=== PATIENT | male | born 1945 | race Caucasian/White ===

== ENCOUNTER 2016-09-27 20:52 | Emergency (ER) | payer MEDICARE, OTHER ==
[2016-09-27] MEDS ORDERED: LISINOPRIL 5 MG TABLET PO STA (21:48)
[2016-09-27] MEDS ORDERED: METOPROLOL SUCCINATE 50 MG TABLET PO STA (21:48)
[2016-09-27] MEDS ORDERED: LISINOPRIL 5 MG TABLET ONE (21:53)
[2016-09-27] MEDS ORDERED: IOPAMIDOL-300 100 ML VIAL IVP ONE (22:31)
[2016-09-27] MEDS ORDERED: amLODIPine 5 MG TABLET PO STA (22:34)
[2016-09-27] MEDS ORDERED: SODIUM CHLORIDE 0.9% 1,000 ML IV ONE (22:34)
[2016-09-27] MEDS ORDERED: KETOROLAC 60 MG/2 ML VIAL IVP STA (22:41)
[2016-09-27] MEDS ORDERED: amLODIPine 5 MG TABLET ONE (22:44)
[2016-09-27] MEDS ORDERED: KETOROLAC 30 MG/ML VIAL ONE (22:44)
== END 2016-09-28 02:35 | disposition home or self-care (01) ==
DX: R07.89 Other chest pain (principal); I10 Essential (primary) hypertension; E78.00 Pure hypercholesterolemia, unspecified; Z95.5 Presence of coronary angioplasty implant and graft
CPT/HCPCS: 36415; 71275; 76705; 80053; 83690; 84484; 85025; 93005; 93010; 96361; 96374; 99284; A9270; G0480; Q9967

== ENCOUNTER 2016-10-11 08:40 | Outpatient (CLI) | payer MEDICARE, OTHER ==
[2016-10-11 11:51] LABS: BASOPHILS # (AUTO) 0.1 10^3/uL (0.0-0.1); EOSINOPHILS # (AUTO) 0.2 10^3/uL (0.0-0.7); EOSINOPHILS % (AUTO) 2.8 %; HCT - HEMATOCRIT 45.9 % (42.0-52.0); HGB - HEMOGLOBIN 15.7 g/dL (14.0-18.0); LYMPHOCYTES # (AUTO) 1.8 10^3/uL (1.5-3.5); LYMPHOCYTES % (AUTO) 31.7 %; MEAN CORPUSCULAR HEMOGLOBIN 32.3 pg (27.0-31.0); MEAN CORPUSCULAR HGB CONC 34.3 g/dL (32.0-36.0); MEAN CORPUSCULAR VOLUME 94.3 fL (80.0-94.0); MEAN PLATELET VOLUME 8.5 fL (7.4-11.4); MONOCYTES # (AUTO) 0.8 10^3/uL (0.0-1.0); MONOCYTES % (AUTO) 13.8 %; NEUTROPHILS # (AUTO) 2.8 10^3/uL (1.5-6.6); NEUTROPHILS % (AUTO) 50.7 %; NUCLEATED RED BLOOD CELLS AUTO 0.1 /100WBC; RED BLOOD COUNT 4.87 10^6/uL (4.70-6.10); RED CELL DISTRIBUTION WIDTH 13.1 % (12.0-15.0); UNCORRECTED WHITE BLOOD COUNT 5.5 x10^3/uL; WHITE BLOOD COUNT 5.5 x10^3/uL (4.8-10.8)
[2016-10-11 12:07] LABS: ALBUMIN/GLOBULIN RATIO 1.4 (1.0-2.2); BILIRUBIN,TOTAL 0.8 mg/dL (0.2-1.0); BUN - BLOOD UREA NITROGEN 15 mg/dL (6-20); CALCIUM 8.9 mg/dL (8.5-10.3); CARBON DIOXIDE - CO2 28 mmol/L (21-32); CHLORIDE 104 mmol/L (101-111); CHOL/HDL RATIO 2.7 (<5.0); CHOLESTEROL 174 mg/dL; CREATININE 1.1 mg/dL (0.6-1.2); GFR - MDRD 66 (>89); GLUCOSE 90 mg/dL (70-100); HDL CHOLESTEROL 65 mg/dL; LDL/HDL RATIO 1.2 (<3.6); SODIUM 141 mmol/L (135-145); TOTAL PROTEIN 7.6 g/dL (6.7-8.2); TRIGLYCERIDES 146 mg/dL; VLDL CHOLESTEROL 29 mg/dL
== END 2016-10-11 08:41 | disposition home or self-care (01) ==
LOC: LAB.R 08:40
PROVIDERS: ATTEND Internal Medicine
DX: E78.2 Mixed hyperlipidemia (principal); I10 Essential (primary) hypertension; Z79.899 Other long term (current) drug therapy
CPT/HCPCS: 80053; 80061; 84443; 85025

== ENCOUNTER 2018-01-31 09:05 | Outpatient (CLI) | payer MEDICARE, OTHER ==
[2018-01-31 13:21] LABS: CHOL/HDL RATIO 4.3 (<5.0); CHOLESTEROL 242 mg/dL; HDL CHOLESTEROL 56 mg/dL; LDL CHOLESTEROL,CALCULATED 159 mg/dL; LDL/HDL RATIO 2.8 (<3.6); VLDL CHOLESTEROL 27 mg/dL
== END 2018-01-31 09:06 | disposition home or self-care (01) ==
LOC: LAB.R 09:05
PROVIDERS: ATTEND Internal Medicine
DX: E78.5 Hyperlipidemia, unspecified (principal)
CPT/HCPCS: 80061; 83721

== ENCOUNTER 2018-02-22 16:46 | Outpatient (CLI) | payer MEDICARE, OTHER ==
[2018-02-22] MEDS ORDERED: IOPAMIDOL-300 100 ML VIAL ONE (17:16)
[2018-02-22] MEDS ORDERED: IOPAMIDOL-300 100 ML VIAL IVP ONE (17:39)
--- NOTE | 2018-02-22 18:54 | CT Report ---
Reason: HEADACHE Procedure Date: 02/22/2018 Accession Number: [id number] / [id number] Procedure: CT - Head W/WO CPT Code: FULL RESULT: EXAM: CT HEAD WITHOUT AND WITH CONTRAST. INDICATION: 72-year-old male with headache. Please assess. TECHNIQUE: Sequential 5 mm axial images were obtained through the brain, prior to and following intravenous administration of 80 cc Isovue-300 contrast. In accordance with CT protocol optimization, one or more of the following dose reduction techniques were utilized for this exam: automated exposure control, adjustment of mA and/or KV based on patient size, or use of iterative reconstructive technique. COMPARISON: None. FINDINGS: There is mild third/lateral ventriculomegaly. This probably represents ex vacuo ventriculomegaly. However, there does appear to be some discordance between the degree of ventriculomegaly and the amount of cortical sulcal dilatation. In particular, the sulci at the vertex are very small and appear to be at least partially effaced bilaterally. These findings suggest the possibility of normal pressure hydrocephalus. There is a moderate amount of white matter disease in the supratentorial brain, manifested as ill-defined areas of low attenuation that are scattered throughout the periventricular, deep and subcortical white matter bilaterally. A frontoparietal distribution predominates. Attenuation of cortex and white matter is otherwise unremarkable. No evidence of subarachnoid or other intracranial hemorrhage. No abnormal extra-axial fluid collection. No mass effect or midline shift. No enhancing space occupying mass lesion is demonstrated. There appears to be normal intravascular contrast enhancement in the dural venous sinuses and deep venous structures. This effectively excludes the possibility of venous thrombosis. There is calcified atherosclerotic plaque in the carotid siphons. Minor calcified plaque is seen in the right vertebral artery. The skull and skull base appear intact. Middle ear cavities and mastoid air cells appear clear. There is mild mucosal thickening and a few ethmoid air cells. The imaged paranasal sinuses are otherwise clear. IMPRESSION: 1. Mild prominence of third and lateral ventricles. This probably represents ex vacuo ventriculomegaly. However, there does appear to be some discordance between the degree of ventriculomegaly and the amount of cortical sulcal dilatation. In particular, the sulci at the vertex are very small and appear to be at least partially effaced bilaterally. The sylvian fissures are dilated. These findings suggest the possibility of normal pressure hydrocephalus. Recommend clinical correlation for possible NPH. 2. A moderate amount of white matter disease is identified in the supratentorial brain, likely representing chronic microangiopathy. 3. Intracranial atherosclerosis. 4. No acute intracranial pathology is demonstrated. In particular, there is no evidence of hemorrhage, infarction or space-occupying mass. The call report notification system was initiated by Dr. Tulio Harrison at 18:46 hrs on 02/22/18. A preliminary report for this examination was called to , following interpretation on 02/22/2018 at 1850 hours, as requested.
== END 2018-02-22 16:47 | disposition home or self-care (01) ==
LOC: DI 16:46
PROVIDERS: ATTEND Nurse Practitioner Primary Care
DX: R51 Headache (principal)
CPT/HCPCS: 70470; Q9967

== ENCOUNTER → 2018-02-22 | Outpatient (CLI) | payer MEDICARE, OTHER ==
[2018-02-22 17:06] LABS: CREATININE 1.2 mg/dL (0.6-1.2)
== END ==
LOC: LAB.R 08:00
PROVIDERS: ATTEND Nurse Practitioner Primary Care
DX: R20.2 Paresthesia of skin (principal); R51 Headache; R20.0 Anesthesia of skin; Z79.899 Other long term (current) drug therapy
CPT/HCPCS: 81599; 82306; 82565; 82607; 86592

== ENCOUNTER 2018-05-27 19:14 | Inpatient (IN) | payer MEDICARE, OTHER ==
[2018-05-27 19:38] LABS: BASOPHILS # (AUTO) 0.1 10^3/uL (0.0-0.1); EOSINOPHILS # (AUTO) 0.5 10^3/uL (0.0-0.7); EOSINOPHILS % (AUTO) 6.3 %; HGB - HEMOGLOBIN 16.6 g/dL (14.0-18.0); LYMPHOCYTES # (AUTO) 2.2 10^3/uL (1.5-3.5); LYMPHOCYTES % (AUTO) 28.2 %; MEAN CORPUSCULAR HEMOGLOBIN 32.4 pg (27.0-31.0); MEAN CORPUSCULAR HGB CONC 34.6 g/dL (32.0-36.0); MEAN CORPUSCULAR VOLUME 93.9 fL (80.0-94.0); MONOCYTES # (AUTO) 1.1 10^3/uL (0.0-1.0); MONOCYTES % (AUTO) 13.8 %; NEUTROPHILS % (AUTO) 50.7 %; PLT - PLATELET COUNT 220 10^3/uL (130-450); RED BLOOD COUNT 5.13 10^6/uL (4.70-6.10); RED CELL DISTRIBUTION WIDTH 12.3 % (12.0-15.0); WHITE BLOOD COUNT 7.9 x10^3/uL (4.8-10.8)
[2018-05-27] MEDS ORDERED: MORPHINE 2 MG/ML CARPUJECT IVP STA (19:38)
[2018-05-27] MEDS ORDERED: LABETALOL 20 MG/4 ML SYRINGE IVP STA (19:38)
--- NOTE | 2018-05-27 19:42 | ED Physician Documentation ---
PD HPI ALTERED MENTAL STATUS - Stated complaint Stated Complaint: ARANA - Chief complaint Chief Complaint: Neuro - History obtained from History obtained from: Patient, Family () - History of Present Illness Timing - onset: Yesterday (This is a 72-year-old gentleman with history of hypertension. Sound like he has been dealing with headaches for a while now and had a CT a few months ago which showed some atherosclerosis and concern for normal pressure hydrocephalus. His admits that he has had a shuffling gait and mild problems with memory but no incontinence. Over the last 2 days he has had a severe waxing and waning headache that generally is worse at night and near the frontal vertex of the head. Last night and tonight it is associated with word finding difficulties and stuttering. He has had that mildly in the past but it was much worse tonight than any other time. He denies any photophobia or nausea.) Review of Systems Ten Systems: 10 systems reviewed and negative Constitutional: denies: Fever, Chills Cardiac: denies: Chest pain / pressure, Palpitations Respiratory: denies: Dyspnea, Cough GI: denies: Abdominal Pain, Nausea, Vomiting, Diarrhea PD PAST MEDICAL HISTORY - Past Medical History Cardiovascular: Hypertension, High cholesterol - Past Surgical History Past Surgical History: Yes Cardiovascular: Coronary stent - Present Medications Home Medications: Ambulatory Orders Medication Instructions Recorded Confirmed Aspirin/Acetaminophen/Caffeine 1 tab PO Q6HR PRN 05/27/18 05/27/18 [Excedrin Migraine Caplet] RX: Carvedilol 1 tab PO BID 05/27/18 05/27/18 RX: Rosuvastatin Calcium 1 tab PO QPM 05/27/18 05/27/18 - Allergies Allergies/Adverse Reactions: Allergies Allergy/AdvReac Type Severity Reaction Status Date / Time No Known Drug Allergies Allergy Verified 05/27/18 19:22 - Social History Does the pt smoke?: No Smoking Status: Never smoker Does the pt drink ETOH?: Yes Does the pt have substance abuse?: Yes - Immunizations Immunizations are current?: Yes - POLST Patient has POLST: No PD ED PE NORMAL - Vitals Vital signs reviewed: Yes - General General: Other (He is alert and oriented to person and place in a reasonable short-term historian but cannot come up with the date. 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 Eye Opening: Spontaneous Motor: Obeys Commands Verbal: Confused GCS Score: 14 - Psych Psych: Normal mood, Normal affect NIHSS - Time Time: 19:35 - Level of Consciousness Level of consciousness: (0) Alert, Keenly responsive LOC Questions: (2) Answers neither correct LOC Commands: (0) Performs both correctly - Gaze Best Gaze: (0) Normal - Visual Visual: (0) No loss - Facial Palsy Facial Palsy: (0) Normal, symmetrical movement - Motor Arms (both separate) Motor Arm (right): (0) No drift Motor Arm (left): (0) No drift - Motor Legs (both separate) Motor Leg (right): (0) No drift Motor Leg (left): (0) No drift - Limb Ataxia Limb Ataxia: (0) Absent (But seems to have a little bit of difficulty following commands in the right upper extremity) - Sensory Sensory: (0) Normal - Best Language Best Language: (1) [id number] - Dysarthria Dysarthria: (1) [id number] dysarthria - Extinction and Inattention (formally neg Extinction and inattention: (0) No abnormality - Total Score/Results Total Score/Result: 4 Results - Vitals Vitals: Vital Signs - 24 hr 05/27/18 05/27/18 05/27/18 19:16 19:53 20:04 Temperature 36.7 C Heart Rate 64 64 62 Respiratory 20 19 18 Rate Blood Pressure 200/119 H 196/116 H O2 Saturation 99 98 97 05/27/18 05/27/18 05/27/18 20:13 20:42 20:54 Temperature Heart Rate 65 75 78 Respiratory 16 20 22 Rate Blood Pressure 192/119 H 175/100 H 181/102 H O2 Saturation 98 95 95 05/27/18 05/27/18 05/27/18 21:13 21:36 22:02 Temperature Heart Rate 84 83 84 Respiratory 18 19 19 Rate Blood Pressure 152/98 H 146/97 H 153/93 H O2 Saturation 97 95 94 05/27/18 22:33 Temperature Heart Rate 84 Respiratory 12 Rate Blood Pressure 150/96 H O2 Saturation 98 Oxygen O2 Source Room air - EKG (time done) 1926 Rate: Rate (enter#) (65) Rhythm: NSR [place]: Normal Intervals: Normal OR QRS: LVH Ischemia: Normal ST segments Computer interpretation: Agree with computer - Labs Labs: Laboratory Tests 05/27/18 05/27/18 05/27/18 19:27 19:27 19:27 WBC 7.9 RBC 5.13 Hgb 16.6 Hct 48.1 MCV 93.9 MCH 32.4 H MCHC 34.6 RDW 12.3 Plt Count 220 MPV 8.0 Neut # (Auto) 4.0 Lymph # (Auto) 2.2 [place]lan # (Auto) 1.1 H Eos # (Auto) 0.5 Baso # (Auto) 0.1 Absolute Nucleated RBC 0.00 Nucleated RBC % 0.1 PT 11.2 INR 1.0 Sodium 138 Potassium 3.5 Chloride 101 Carbon Dioxide 28 Anion Gap 9.0 BUN 18 Creatinine 1.3 H Estimated GFR (MDRD) 54 L Glucose 120 H Calcium 8.6 Total Bilirubin 0.7 AST 26 ALT 38 Alkaline Phosphatase 59 Total Protein 7.4 Albumin 4.2 Globulin 3.2 Albumin/Globulin Ratio 1.3 Lipase 43 Ethyl Alcohol 05/27/18 19:27 WBC RBC Hgb Hct MCV MCH MCHC RDW Plt Count MPV Neut # (Auto) Lymph # (Auto) [place] # (Auto) Eos # (Auto) Baso # (Auto) Absolute Nucleated RBC Nucleated RBC % PT INR Sodium Potassium Chloride Carbon Dioxide Anion Gap BUN Creatinine Estimated GFR (MDRD) Glucose Calcium Total Bilirubin AST ALT Alkaline Phosphatase Total Protein Albumin Globulin Albumin/Globulin Ratio Lipase Ethyl Alcohol < 5.0 PD MEDICAL DECISION MAKING - ED course ED course: 72-year-old gentleman with an acute on chronic headache now associated with word finding difficulties and confusion. He also has significantly elevated blood pressures. Initial head CT was negative. I am concerned for OR ES. I spoke with the on-call neurologist at [facility] who agreed and he had gotten a single dose of labetalol before the CT and then on return from CT we started nicardipine. The neurologist recommended CT angiography of the head neck to rule out a large vessel occlusion and if negative recommended admission here for blood pressure control and MRI in the morning. His CT angiography was read as being negative for large vessel occlusion. After a while on the Cardene drip his blood pressure was about 160/80. He definitely improved with respect to word finding difficulty and his symptoms. Not resolved though. For example originally when I asked him the date he really could not come up with anything cogent, but around 10:10 PM on reexamination he was able to come up with a month and date although they were wrong. I spoke with Dr. Crouch for admission at 10:15 PM. - Critical Care Time(min): 40 Time Includes: Direct patient care, Review records, Reassess patient, Document care, Coordinate care, Medical consult, Family consult for tx dec Data interpretation: Labs, Pulse ox Procedures included in critical care time: Peripheral IV Procedures excluded from critical care time: EKG Departure - Departure Disposition: 66 [facility] DC/Xfer Clinical Impression: PRES (posterior reversible encephalopathy syndrome) Condition: Serious
[2018-05-27 19:49] LABS: PT - PROTHROMBIN TIME 11.2 secs (9.9-12.6)
[2018-05-27 19:51] LABS: ALBUMIN 4.2 g/dL (3.2-5.5); ALBUMIN/GLOBULIN RATIO 1.3 (1.0-2.2); BILIRUBIN,TOTAL 0.7 mg/dL (0.2-1.0); CALCIUM 8.6 mg/dL (8.5-10.3); CREATININE 1.3 mg/dL (0.6-1.2); TOTAL PROTEIN 7.4 g/dL (6.7-8.2)
[2018-05-27] MEDS ORDERED: niCARdipine 20 MG/200 ML 20 MG/200 ML BAG IV STA (20:17)
[2018-05-27] MEDS ORDERED: MORPHINE 10 MG/ML VIAL IVP STA (20:17)
--- NOTE | 2018-05-27 20:28 | CT Report ---
Reason: headache Procedure Date: 05/27/2018 Accession Number: [id number] / [id number] Procedure: CT - Head W/O CPT Code: FULL RESULT: EXAM: CT HEAD EXAM DATE: 05/27/2018 07:51 PM. CLINICAL HISTORY: Headache. COMPARISON: 02/22/2018. TECHNIQUE: Multiaxial CT images were obtained from the foramen magnum to the vertex. Reformats: Sagittal and coronal. IV contrast: None. In accordance with CT protocol optimization, one or more of the following dose reduction techniques were utilized for this exam: automated exposure control, adjustment of mA and/or KV based on patient size, or use of iterative reconstructive technique. FINDINGS: Parenchyma: No intraparenchymal hemorrhage. No evidence of mass, midline shift, or CT findings of acute infarct. Moderate to marked patchy and confluent hypoattenuation in the supratentorial white matter is unchanged. 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 Richard-white differentiation is distinct. Extraaxial Spaces: Normal for age. No subdural or epidural collections identified. Ventricles: Normal in size and position. Sinuses and Orbits: Imaged paranasal sinuses, orbits, and mastoids show no significant abnormality. Bones: No evidence of fracture or calvarial defect. Other: None. IMPRESSION: No acute intracranial abnormality. RADIA
[2018-05-27] MEDS ORDERED: IOVERSOL 320 100 ML VIAL IVP ONE ×2 (20:32→21:10)
--- NOTE | 2018-05-27 22:00 | CT Report ---
Reason: aphasia, headache Procedure Date: 05/27/2018 Accession Number: [id number] / [id number] Procedure: CT - Head Angio CPT Code: FULL RESULT: EXAM: CT ANGIOGRAM HEAD. CT SCAN OF THE HEAD WITH CONTRAST. EXAM DATE: 05/27/2018 09:15 PM CLINICAL HISTORY: 72-year-old male. Aphasia, headache. COMPARISON: Noncontrast CT head 05/27/2018 TECHNIQUE: - CT Scan Head: Using a multidetector scanner, axial images were acquired from the foramen magnum to the skull vertex following contrast administration. - CT Angiogram: Using a multidetector scanner, high-resolution axial images were acquired from the skull base through vertex following rapid infusion of intravenous contrast. Reformats: Multiplanar MIP reformats were reconstructed. Nascet criteria used for stenosis measurement. IV Contrast: 80 ML OPTIRAY 320. In accordance with CT protocol optimization, one or more of the following dose reduction techniques were utilized for this exam: automated exposure control, adjustment of mA and/or KV based on patient size, or use of iterative reconstructive technique. FINDINGS: NON-CONTRAST HEAD: Performed and dictated separately. POST-CONTRAST HEAD: No abnormal enhancement. CT ANGIOGRAM HEAD: RIGHT: Internal Carotid artery: No evidence of dissection. No evidence of aneurysm along the intracranial ICA. Anterior Cerebral Artery: Patent without significant stenosis, aneurysm, or vascular malformation. Middle Cerebral Artery: Patent without significant stenosis, aneurysm, or vascular malformation. Posterior Cerebral Artery: Patent without significant stenosis, aneurysm, or vascular malformation. Posterior Communicating Artery: Not clearly visualized Vertebral Artery: Patent without significant stenosis. No evidence of dissection. LEFT: Internal Carotid artery: No evidence of dissection. No evidence of aneurysm along the intracranial ICA. Anterior Cerebral Artery: Patent without significant stenosis, aneurysm, or vascular malformation. Middle Cerebral Artery: Patent without significant stenosis, aneurysm, or vascular malformation. Posterior Cerebral Artery: Patent without significant stenosis, aneurysm, or vascular malformation. Posterior Communicating Artery: Not clearly visualized Vertebral Artery: Patent without significant stenosis. No evidence of dissection. CENTRAL: Anterior Communicating Artery: Patent. No aneurysm. Basilar Artery: Patent without significant stenosis. No aneurysm. DURAL VENOUS SINUSES AND MAJOR CENTRAL VEINS: Patent. IMPRESSION: 1. Concurrently obtained noncontrast CT head has been performed and dictated separately. 2. No abnormal enhancement on the postcontrast CT head. 3. No CTA evidence of hemodynamically significant stenosis, large vessel occlusion, acute dissection, aneurysm, or vascular malformation within intracranial arteries. RADIA
--- NOTE | 2018-05-27 22:08 | CT Report ---
Reason: aphasia, headache Procedure Date: 05/27/2018 Accession Number: [id number] / [id number] Procedure: CT - Neck Angio CPT Code: FULL RESULT: EXAM: CT ANGIOGRAM NECK EXAM DATE: 05/27/2018 09:17 PM. CLINICAL HISTORY: Aphasia, headache. COMPARISON: HEAD W/O 05/27/2018 7:37 PM. TECHNIQUE: Routine axial helical imaging was performed from the skull base through the aortic arch. Reconstructions: Routine multiplanar 3D MIP reconstructions. IV Contrast: 80 ML OPTIRAY 320. Evaluation of arterial stenosis is based on a NASCET method of measurement. In accordance with CT protocol optimization, one or more of the following dose reduction techniques were utilized for this exam: automated exposure control, adjustment of mA and/or KV based on patient size, or use of iterative reconstructive technique. FINDINGS: Right Carotid: The common carotid, internal carotid, and external carotid arteries are widely patent. No dissection, significant atherosclerotic plaque, or calcification identified. Left Carotid: The common carotid, internal carotid, and external carotid arteries are widely patent. No dissection, significant atherosclerotic plaque, or calcification identified. Vertebrals: The left vertebral artery is dominant. The vertebrobasilar system shows no stenoses. Intracranial Circulation: Concurrently obtained CTA head has been dictated separately. Other: The visualized lung apices are clear. Azygos lobe is noted. Mild multilevel degenerative spondylosis of the visualized spine, no acute fracture or malalignment. The visualized soft tissues of the neck demonstrate no acute abnormality. IMPRESSION: 1. No CTA evidence of hemodynamically significant stenosis, large vessel occlusion, acute dissection, aneurysm, or vascular malformation within extracranial arteries. 2. Concurrently obtained CTA head has been dictated separately. RADIA
[2018-05-27] MEDS ORDERED: PROCHLORPERAZINE 10 MG/2 ML VIAL IVP PRN (22:55)
[2018-05-27] MEDS ORDERED: ONDANSETRON 4 MG/2 ML VIAL IVP PRN (22:55)
[2018-05-27] MEDS ORDERED: HYDROcod/ACETAM 5/325 MG TABLET PO PRN (22:55)
[2018-05-27] MEDS ORDERED: SODIUM CHLORIDE FLUSH 0.9% 10 ML SYRINGE IVP PRN (22:55)
[2018-05-27] MEDS ORDERED: ZOLPIDEM 5 MG TABLET PO PRN (22:55)
[2018-05-27] MEDS ORDERED: MORPHINE 2 MG/ML CARPUJECT IVP PRN (22:55)
[2018-05-27] MEDS ORDERED: ALBUTEROL NEB 2.5 MG/3 ML INH PRN (22:55)
--- NOTE | 2018-05-27 23:07 | HISTORY & PHYSICAL EXAMINATION ---
Chief Complaint - Chief Complaint Chief Complaint: headache History of Present Illness - Admitted From Admitted From:: Emergency department - History Obtained From Records Reviewed: Emergency department History obtained from: Patient and Dr. Fajardo, ED physician Exam Limitations: None - History of Present Illness HPI Comment/Other: Patient is a 72-year-old male with a past medical history of hypertension, CAD status post UT with single vessel stent approximately 7 years ago who was recently seen by his mainstreaming facilitator where he expressed a wish to minimize his medications and he went from triple therapy including losartan, metoprolol, and one other agent that the patient cannot remember, to now using only carvedilol. Over the last couple of days, he has had a significant but waxing and waning headache that has progressively gotten worse, and yesterday started to become associated with difficulty in word finding, stuttering, and very transiently a shuffling gait. Patient was brought to the emergency room by EMS where he was found to be very hypertensive with systolics well over 220 and diastolics well over 110. Patient had a CT angiogram of the head and neck which was relatively unremarkable, however because of the symptoms with which she was presenting along with the blood pressure Dr. Rich did reach out to [facility] neurology on-call who recommended blood pressure control which has been accomplished fairly well so far with a nicardipine drip, followed by an MRI in the morning. So far management in the emergency department has included nicardipine infusion continuous and is at the time of this history and physical at 8 mg/h with a blood pressure of 156/96. The patient has had significant improvement in his symptoms, after initially presenting to the emergency room confused enough to be and able to respond to questions, to now being able to provide a fairly accurate and reliable history to me.Patient specifically denies any acute visual changes or any other motor deficits. Denies any fever, neck pain, recent travel, nausea or vomiting, known sick contacts or previous similar episodes. His lab work has been unremarkable, his EKG shows only left ventricular hypertrophy consistent with a patient with a history of hypertension, and his vitals with the exception of blood pressure have remained normal. History - Past Medical History Cardiovascular: reports: Hypertension, High cholesterol MRSA Hx?: No - Past Surgical History Cardiovascular: reports: Coronary stent - Family & Social History Family History: Mother: Cancer (Pancreatic), Father: , CAD Family History Comment/Other: Patient reports significant family history on the paternal side of coronary artery disease Living arrangement: At home Living Situation: With spouse/s.o. 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 He lives here in [place] with his and he has 2 adult children, a daughter in [place] and a son in [place]. - POLST Patient has POLST: Yes POLST Status: DNR Meds/Allgy - Home Medications Home Medications: Ambulatory Orders Medication Instructions Recorded Confirmed Aspirin/Acetaminophen/Caffeine 1 tab PO Q6HR PRN 05/27/18 05/27/18 [Excedrin Migraine Caplet] Carvedilol 1 tab PO BID 05/27/18 05/27/18 Rosuvastatin Calcium 1 tab PO QPM 05/27/18 05/27/18 - Allergies Allergies/Adverse Reactions: Allergies Allergy/AdvReac Type Severity Reaction Status Date / Time No Known Drug Allergies Allergy Verified 05/27/18 19:22 Review of Systems - Constitutional Constitutional: reports: Fatigue. denies: Fever, Chills - Eyes Eyes: reports: Other (For clarification the patient does note that over the last several months or longer he has noticed that after long periods of reading he will have eye strain and some blurry vision, but there is no acute recent change in his vision associated with the presenting complaint). denies: Blurred vision, Spots in vision, Dipolpia - Cardiovascular Cariovascular: denies: Irregular heart rate, Palpitations, Chest pain - Respiratory Respiratory: denies: Cough, Sputum production, Wheezing - Gastrointestinal Gastrointestinal: denies: Abdominal pain, Abdominal distention, Constipation, Diarrhea - Genitourinary Genitourinary: denies: Dysuria, Frequency, Urgency - Psychiatric Psychiatric: denies: Anxiety - Endocrine Endocrine: denies: Polyuria - All Other Systems All Other Systems: reports: Reviewed and negative Prior Level of Functionality: Patient is independent and he is hoping to get back on his motorcycle and ride across the country this spring Exam - Vital Signs Reviewed Vital Signs: Yes Vital Signs: Vital Signs x48h Temp Pulse Resp BP Pulse Ox 05/27/18 22:33 84 12 150/96 H 98 05/27/18 22:02 84 19 153/93 H 94 12/30/18 21:36 83 19 146/97 H 95 05/27/18 21:13 84 18 152/98 H 97 05/27/18 20:54 78 22 181/102 H 95 05/27/18 20:42 75 20 175/100 H 95 05/27/18 20:13 65 16 192/119 H 98 05/27/18 20:04 62 18 196/116 H 97 05/27/18 19:53 64 19 98 05/27/18 19:16 36.7 C 64 20 200/119 H 99 Vital Signs - 24 hr 05/27/18 05/27/18 05/27/18 19:16 19:53 20:04 Temperature 36.7 C Heart Rate 64 64 62 Respiratory 20 19 18 Rate Blood Pressure 200/119 H 196/116 H O2 Saturation 99 98 97 05/27/18 05/27/18 05/27/18 20:13 20:42 20:54 Temperature Heart Rate 65 75 78 Respiratory 16 20 22 Rate Blood Pressure 192/119 H 175/100 H 181/102 H O2 Saturation 98 95 95 05/27/18 05/27/18 05/27/18 21:13 21:36 22:02 Temperature Heart Rate 84 83 84 Respiratory 18 19 19 Rate Blood Pressure 152/98 H 146/97 H 153/93 H O2 Saturation 97 95 94 05/27/18 05/27/18 22:33 23:07 Temperature 37.0 C Heart Rate 84 83 Respiratory 12 18 Rate Blood Pressure 150/96 H 152/94 H O2 Saturation 98 95 - Physical Exam General Appearance: positive: No acute distress Eyes Bilateral: positive: Normal inspection ENT: positive: ENT inspection nml Neck: positive: Nml inspection Respiratory: positive: Chest non-tender, No respiratory distress, Breath sounds nml. negative: Wheezes, Rales, Rhonchi Cardiovascular: positive: Regular rate & rhythm, No murmur, No gallop Peripheral Pulses: positive: 2+ Abdomen: positive: Non-tender, No organomegaly, Nml bowel sounds, No distention Skin: positive: Color nml, Dry Extremities: positive: Non-tender, Nml appearance, No pedal edema. negative: Pedal edema Neurologic/Psychiatric: positive: Oriented x3 (He is relatively well oriented to time was just off by couple of weeks, but he is able to relay most recent events with good detail. Some historical facts were difficult for the patient to recall such as where his children live, however they did eventually come to him. Notably this is markedly improved compared with what was described to me upon his presentation before lowering the blood pressure with nicardipine.), Mood/affect nml. negative: Sensory loss, Facial droop, Slurred/abnml speech, Depressed mood/affect Conclusion/Plan - Problem List (1) PRES (posterior reversible encephalopathy syndrome) Conclusion/Plan: Patient does present with initially very L of blood pressures along with headaches, and confusion however he does not have visual changes or seizures. Differential diagnosis would include both press syndrome as well as hypertensive encephalopathy, and less likely would be concern for CVA. Neurology at [facility] has recommended an MRI in the morning but otherwise I believe we are all in agreement that the patient is less likely to be experiencing an acute stroke and at this point the goal would be for blood pressure control rather than for permissive hypertension. Primary reason for this is no evidence of motor deficits, and significant improvement after blood pressure control is achieved. Patient is on a nicardipine drip currently at 8 mg/h and this will be titrated downward as needed and eventually to convert him to oral medications. He will likely need more than his prescribed 12.5 mg of carteolol twice daily and will discuss plan as below. (2) Hypertension Conclusion/Plan: Patient has previously been diagnosed with hypertension and had previously been on 3 antihypertensives by his mainstreaming facilitator until the patient requested to remove some of the medication simply for convenience factor. Of note, the patient states that he does not particularly mind being on multiple medications as long as the number of doses per day is minimized because this is difficult for him to remember. Having said that, the patient states that now he has gone through this event, he has changed his mind and is willing to do whatever the doctors recommend. He is very motivated to get back into a good state of health so that he can ride his motorcycle across the country this spring. Once he is off the nicardipine drip, would recommend trying increase the carvedilol from 12.5 mg twice daily to 25 mg twice daily and pending blood pressures a calcium channel betty such as amlodipine and titrate up as needed. We will see how he does overnight, and once the drip is no longer needed convert him to orals. Qualifiers: Hypertension type: essential hypertension Qualified Code(s): I10 - Essential (primary) hypertension (3) Hyperlipidemia Conclusion/Plan: Continue his statin Qualifiers: Hyperlipidemia type: unspecified Qualified Code(s): E78.5 - Hyperlipidemia, unspecified - Lab Results Lab results reviewed: Yes Fish Bones: 05/27/18 19:27 05/27/18 19:27 - Diagnostic Imaging Results Diagnostic Imaging Results: positive: Final report reviewed - EKG Results EKG Interpreted Independently: Yes EKG Comparison: Old EKG unavailable Core Measures - Anticipated LOS I expect patient to be DC'd or transferred within 96 hours.: Yes
[2018-05-27] MEDS: SODIUM CHLORIDE FLUSH 0.9% 10 ML SYRINGE IVP SCH (23:44)
[2018-05-27] MEDS: niCARdipine 20 MG/200 ML 20 MG/200 ML BAG IV SCH (23:44)
[2018-05-28] MEDS: niCARdipine 20 MG/200 ML 20 MG/200 ML BAG IV SCH (01:55)
[2018-05-28] MEDS ORDERED: niCARdipine 20 MG/200 ML 20 MG/200 ML BAG IV SCH (03:00)
[2018-05-28 05:16] LABS: BASOPHILS # (AUTO) 0.1 10^3/uL (0.0-0.1); BASOPHILS % (AUTO) 0.6 %; EOSINOPHILS # (AUTO) 0.1 10^3/uL (0.0-0.7); EOSINOPHILS % (AUTO) 1.4 %; HGB - HEMOGLOBIN 16.1 g/dL (14.0-18.0); LYMPHOCYTES # (AUTO) 1.6 10^3/uL (1.5-3.5); LYMPHOCYTES % (AUTO) 16.9 %; MEAN CORPUSCULAR HEMOGLOBIN 32.3 pg (27.0-31.0); MEAN CORPUSCULAR HGB CONC 34.4 g/dL (32.0-36.0); MEAN CORPUSCULAR VOLUME 93.9 fL (80.0-94.0); MEAN PLATELET VOLUME 8.3 fL (7.4-11.4); MONOCYTES # (AUTO) 1.2 10^3/uL (0.0-1.0); MONOCYTES % (AUTO) 12.7 %; NEUTROPHILS # (AUTO) 6.5 10^3/uL (1.5-6.6); NEUTROPHILS % (AUTO) 68.4 %; PLT - PLATELET COUNT 218 10^3/uL (130-450); RED BLOOD COUNT 4.99 10^6/uL (4.70-6.10); RED CELL DISTRIBUTION WIDTH 12.6 % (12.0-15.0); WHITE BLOOD COUNT 9.5 x10^3/uL (4.8-10.8)
[2018-05-28 05:22] LABS: CALCIUM 8.4 mg/dL (8.5-10.3); CREATININE 1.1 mg/dL (0.6-1.2)
[2018-05-28 05:35] LABS: MAGNESIUM 2.2 mg/dL (1.7-2.8); PHOSPHORUS 2.7 mg/dL (2.5-4.6)
[2018-05-28] MEDS ORDERED: POTASSIUM CHLORIDE 20 MEQ TABLET PO ONE (08:00)
[2018-05-28] MEDS: FAMOTIDINE 20 MG TABLET PO SCH ×2 (08:36→20:57)
[2018-05-28] MEDS: SODIUM CHLORIDE FLUSH 0.9% 10 ML SYRINGE IVP SCH ×3 (08:37→20:57)
[2018-05-28] MEDS: ENOXAPARIN 40 MG/0.4 ML SYRINGE SUBQ SCH (08:37)
[2018-05-28] MEDS: ACETAMINOPHEN 325 MG TABLET PO PRN (08:57)
[2018-05-28] MEDS: METOPROLOL SUCCINATE 25 MG TABLET PO SCH (09:24)
[2018-05-28] MEDS: amLODIPine 5 MG TABLET PO SCH (09:24)
[2018-05-28] MEDS: LISINOPRIL 20 MG TABLET PO SCH (09:24)
[2018-05-28] MEDS ORDERED: GADOBUTROL 10 MMOL/10 ML VIAL ONE (12:08)
[2018-05-28] MEDS ORDERED: GADOBUTROL 10 MMOL/10 ML VIAL IVP ONE (12:59)
--- NOTE | 2018-05-28 13:36 | MRI Report ---
Reason: Eval for PRES vs HTN emergency vs NPH vs CVA Procedure Date: 05/28/2018 Accession Number: [id number] / [id number] Procedure: MRI - Brain W/WO CPT Code: FULL RESULT: EXAM: MRI BRAIN WITHOUT AND WITH CONTRAST EXAM DATE: 05/28/2018 12:08 PM. CLINICAL HISTORY: 72-year-old male with headaches and chest pain. Eval for PRES vs HTN emergency vs NPH vs CVA. COMPARISON: CT head 05/27/2018 TECHNIQUE: Multiplanar, multisequence T1-weighted and fluid-sensitive MR sequences of the brain were performed. Sequences optimized for routine evaluation. Other: None. IV Contrast: 10 cc Gadavist. FINDINGS: Brain Volume: Normal for age. Parenchyma: No acute hemorrhage, mass, or infarct. Extensive, semi-confluent T2/FLAIR hyperintense periventricular, deep, and subcortical white matter lesions within cerebral hemispheres bilaterally. This appears similar in extent to prior CT going back to 02/22/2018, therefore, while not specific, most likely represents sequela of extensive chronic microangiopathy as opposed to an acute process such as PRES. No abnormal enhancement. No parenchymal foci of susceptibility artifact. Ventricles/Cisterns: No hydrocephalus. No abnormal extra-axial fluid collection or hemorrhage. Orbits: Symmetric and unremarkable. Sella Turcica: The pituitary gland, cavernous sinuses, suprasellar cistern and optic chiasm are unremarkable. IAC: Symmetric and unremarkable. Vasculature: Normal signal flow void is seen in the major arterial structures at the skull base. The dural sinuses are patent and enhance normally. Sinuses: No acute sinus disease. Bones: No focal pathologic appearing marrow signal changes. Other: None. IMPRESSION: 1. No MRI evidence of acute intracranial abnormality. Specifically, no evidence of acute or subacute infarct, acute intracranial hemorrhage, mass, midline shift, or hydrocephalus. No abnormal intracranial enhancement. 2. Extensive, semi-confluent T2/FLAIR hyperintense periventricular, deep, and subcortical white matter lesions within cerebral hemispheres bilaterally. This appears similar in extent to prior CT going back to 02/22/2018, therefore, while not specific, most likely represents sequela of extensive chronic microangiopathy as opposed to an acute process such as PRES. RADIA
--- NOTE | 2018-05-28 15:14 | PROVIDER PROGRESS NOTE ---
Assessment/Plan - Problem List (1) PRES (posterior reversible encephalopathy syndrome) Assessment/Plan: Patient does present with initially very high blood pressures along with headaches, and confusion however he does not have visual changes or seizures. Differential diagnosis would include both press syndrome as well as hypertensive encephalopathy, and less likely would be concern for CVA. Neurology at [facility] has recommended an MRI in the morning but otherwise I believe we are all in agreement that the patient is less likely to be experiencing an acute stroke and at this point the goal would be for blood pressure control rather than for permissive hypertension. Primary reason for this is no evidence of motor deficits, and significant improvement after blood pressure control is achieved. In the morning patient continued to have some expressive aphasia and word finding difficulties. As the patient's blood pressure improved throughout the day the patient's mentation returned to baseline. Patient did undergo MRI which did not show any evidence of an acute stroke and did show chronic microangiopathic changes which were less likely to be from pres syndrome. Patient likely had hypertensive encephalopathy which appears now to be resolving. Patient was weaned off of nicardipine drip earlier this morning. Patient was started on metoprolol succinate, amlodipine and lisinopril We will continue to monitor patient's neurologic status as well as his blood pressure and titrate medications as needed. Patient will be transferred to medical surgical unit. (2) Hypertension Conclusion/Plan: Patient has previously been diagnosed with hypertension and had previously been on 3 antihypertensives by his ekg monitor tech until the patient requested to remove some of the medication simply for convenience factor. Of note, the patient states that he does not particularly mind being on multiple medications as long as the number of doses per day is minimized because this is difficult for him to remember. Having said that, the patient states that now he has gone through this event, he has changed his mind and is willing to do whatever the doctors recommend. He is very motivated to get back into a good state of health so that he can ride his motorcycle across the country this spring. Patient weaned off nicardipine drip this morning and started on metoprolol succinate, amlodipine and lisinopril Monitor blood pressure Titrate medications as needed Qualifiers: Hypertension type: essential hypertension Qualified Code(s): I10 - Essential (primary) hypertension (3) Hyperlipidemia Conclusion/Plan: Continue his statin Qualifiers: Hyperlipidemia type: unspecified Qualified Code(s): E78.5 - Hyperlipidemia, unspecified - Current Meds Current Meds: Current Medications Generic Name Dose Route Start Last Admin Trade Name Freq PRN Reason Stop Dose Admin Acetaminophen 650 mg 05/27/18 22:55 05/28/18 08:57 Tylenol PO 650 mg Q4HR PRN Administration Pain 1 to 4 Amlodipine Besylate 5 mg 05/28/18 09:00 05/28/18 09:24 Norvasc PO 5 mg DAILY NEO Administration Enoxaparin Sodium 40 mg 05/28/18 09:00 05/28/18 08:37 Lovenox SUBQ 40 mg DAILY NEO Administration Famotidine 20 mg 05/28/18 09:00 05/28/18 08:36 Pepcid PO 20 mg BID NEO Administration Lisinopril 20 mg 05/28/18 09:00 05/28/18 09:24 Zestril PO 20 mg DAILY NEO Administration Metoprolol Succinate 25 mg 05/28/18 09:00 05/28/18 09:24 Toprol Xl PO 25 mg DAILY NEO Administration Sodium Chloride 10 ml 05/28/18 01:00 05/28/18 08:37 Normal Saline Flush 0.9% IVP 20 ml 0100,0900,1700 NEO Administration - Lab Result Lab results reviewed: Yes Fish Bone Diagrams: 05/28/18 04:40 05/28/18 04:40 - EKG Results EKG Interpreted Independently: Yes - Diagnostic Imaging Results Diagnostic Imaging Results: Final report reviewed - Additional Planning Condition/Complexity: Improved My Orders: My Active Orders 05/28/18 09:00 Lisinopril [Zestril] 20 mg PO DAILY Metoprolol Succinate [Toprol Xl] 25 mg PO DAILY amLODIPine [Norvasc] 5 mg PO DAILY 05/28/18 15:10 Admit [Admit \ Transfer \ Status] [RC] .ONCE Plan Discussed with:: Patient, Spouse Time Spent: 31-60 minutes Subjective - Subjective Patient Reports: Feeling Better, Resting Comfortably, No Complaints, Other (No fevers or chills) Nursing Reports: No Complaints Objective Vital Signs: Vital Signs - 24 hr 05/27/18 05/27/18 05/27/18 19:16 19:53 20:04 Temperature 36.7 C Heart Rate 64 64 62 Heart Rate [ Monitoring electrodes] Respiratory 20 19 18 Rate Blood Pressure 200/119 H 196/116 H Blood Pressure [Right Brachial artery] O2 Saturation 99 98 97 05/27/18 05/27/18 05/27/18 20:13 20:42 20:54 Temperature Heart Rate 65 75 78 Heart Rate [ Monitoring electrodes] Respiratory 16 20 22 Rate Blood Pressure 192/119 H 175/100 H 181/102 H Blood Pressure [Right Brachial artery] O2 Saturation 98 95 95 05/27/18 05/27/18 05/27/18 21:13 21:36 22:02 Temperature Heart Rate 84 83 84 Heart Rate [ Monitoring electrodes] Respiratory 18 19 19 Rate Blood Pressure 152/98 H 146/97 H 153/93 H Blood Pressure [Right Brachial artery] O2 Saturation 97 95 94 05/27/18 05/27/18 05/27/18 22:33 23:07 23:30 Temperature 37.0 C 36.7 C Heart Rate 84 83 Heart Rate [ 95 Monitoring electrodes] Respiratory 12 18 20 Rate Blood Pressure 150/96 H 152/94 H Blood Pressure 158/101 H [Right Brachial artery] O2 Saturation 98 95 96 05/27/18 05/28/18 05/28/18 23:45 00:00 00:15 Temperature Heart Rate Heart Rate [ 85 83 80 Monitoring electrodes] Respiratory 20 20 21 Rate Blood Pressure Blood Pressure 150/94 H 136/97 H 136/93 H [Right Brachial artery] O2 Saturation 96 97 97 05/28/18 05/28/18 05/28/18 00:30 00:45 01:00 Temperature Heart Rate Heart Rate [ 88 79 78 Monitoring electrodes] Respiratory 14 19 18 Rate Blood Pressure Blood Pressure 144/95 H 131/84 H 116/78 [Right Brachial artery] O2 Saturation 94 94 94 05/28/18 05/28/18 05/28/18 01:15 01:30 01:45 Temperature Heart Rate Heart Rate [ 76 78 76 Monitoring electrodes] Respiratory 19 13 20 Rate Blood Pressure Blood Pressure 134/79 H 117/82 H 115/69 [Right Brachial artery] O2 Saturation 94 96 96 05/28/18 05/28/18 05/28/18 02:00 02:05 02:10 Temperature Heart Rate Heart Rate [ 74 72 74 Monitoring electrodes] Respiratory 12 20 20 Rate Blood Pressure Blood Pressure 107/75 112/69 112/70 [Right Brachial artery] O2 Saturation 92 96 93 05/28/18 05/28/1818 02:15 02:20 02:30 Temperature Heart Rate Heart Rate [ 77 71 74 Monitoring electrodes] Respiratory 21 18 20 Rate Blood Pressure Blood Pressure 113/78 115/72 109/72 [Right Brachial artery] O2 Saturation 94 95 94 05/28/18 05/28/18 05/28/18 02:31 02:45 03:00 Temperature Heart Rate Heart Rate [ 74 74 75 Monitoring electrodes] Respiratory 19 22 18 Rate Blood Pressure Blood Pressure 117/78 129/79 124/81 H [Right Brachial artery] O2 Saturation 94 95 94 05/28/18 05/28/18 05/28/18 03:15 03:34 03:45 Temperature Heart Rate Heart Rate [ 74 72 81 Monitoring electrodes] Respiratory 17 20 15 Rate Blood Pressure Blood Pressure 123/81 H 122/76 130/67 [Right Brachial artery] O2 Saturation 95 94 94 05/28/18 05/28/18 05/28/18 04:00 04:30 05:00 Temperature 37.4 C Heart Rate Heart Rate [ 74 77 77 Monitoring electrodes] Respiratory 13 19 16 Rate Blood Pressure Blood Pressure 135/72 H 125/82 H 122/80 [Right Brachial artery] O2 Saturation 96 96 96 05/28/18 05/28/18 05/28/18 05:30 06:00 07:00 Temperature Heart Rate Heart Rate [ 77 82 76 Monitoring electrodes] Respiratory 18 14 12 Rate Blood Pressure Blood Pressure 124/81 H 131/83 H 118/83 H [Right Brachial artery] O2 Saturation 95 95 95 05/28/18 05/28/18 05/28/18 08:00 09:00 10:00 Temperature 37.6 C H Heart Rate Heart Rate [ 88 81 70 Monitoring electrodes] Respiratory 17 22 16 Rate Blood Pressure Blood Pressure 134/83 H 137/85 H 140/91 H [Right Brachial artery] O2 Saturation 96 95 95 05/28/18 05/28/18 05/28/18 11:00 12:00 12:51 Temperature 36.8 C Heart Rate Heart Rate [ 67 62 77 Monitoring electrodes] Respiratory 19 18 17 Rate Blood Pressure Blood Pressure 126/92 H 133/94 H 126/91 H [Right Brachial artery] O2 Saturation 97 95 97 05/28/18 05/28/18 05/28/18 13:00 14:00 15:00 Temperature Heart Rate Heart Rate [ 72 67 66 Monitoring electrodes] Respiratory 19 21 20 Rate Blood Pressure Blood Pressure 123/92 H 123/84 H 136/84 H [Right Brachial artery] O2 Saturation 96 95 95 Oxygen O2 Source Room air I&O (Last 24 Hrs): Intake and Output Totals x24h 05/26/18 05/27/18 05/28/18 23:59 23:59 23:59 Intake Total 962.169 6576.417 Output Total 200 1150 Balance 160.000 352.417 General: Alert, Oriented x3, Cooperative, No acute distress HEENT: Atraumatic, PERRLA, EOMI, Mucous membr. moist/pink Neck: Supple, No JVD, No thyromegaly, +2 carotid pulse wo bruit, No LAD Lymphatic: no adenopathy Neuro: Alert, Non Focal, CN 2-12 Grossly Intact, Oriented Times 3 Cardiovascular: Regular rate, Normal S1, Normal S2, No murmurs Respiratory: Chest non-tender, No respiratory distress, Breath sounds nml Abdomen: Normal bowel sounds, Soft, No tenderness, No hepatospenomegaly, No masses Extremities: No clubbing, No cyanosis, No edema, Normal pulses, No tenderness/swelling Skin: No rashes, No breakdown - Results Results: Laboratory Results WBC 9.5 x10^3/uL (4.8-10.8) 05/28/18 04:40 RBC 4.99 10^6/uL (4.70-6.10) 05/28/18 04:40 Hgb 16.1 g/dL (14.0-18.0) 05/28/18 04:40 Hct 46.9 % (42.0-52.0) 05/28/18 04:40 MCV 93.9 fL (80.0-94.0) 05/28/18 04:40 MCH 32.3 pg (27.0-31.0) H 05/28/18 04:40 MCHC 34.4 g/dL (32.0-36.0) 05/28/18 04:40 RDW 12.6 % (12.0-15.0) 05/28/18 04:40 Plt Count 218 10^3/uL (130-450) 05/28/18 04:40 MPV 8.3 fL (7.4-11.4) 05/28/18 04:40 Neut # (Auto) 6.5 10^3/uL (1.5-6.6) 05/28/18 04:40 Lymph # (Auto) 1.6 10^3/uL (1.5-3.5) 05/28/18 04:40 [place] # (Auto) 1.2 10^3/uL (0.0-1.0) H 05/28/18 04:40 Eos # (Auto) 0.1 10^3/uL (0.0-0.7) 05/28/18 04:40 Baso # (Auto) 0.1 10^3/uL (0.0-0.1) 05/28/18 04:40 Absolute Nucleated RBC 0.03 x10^3/uL 05/28/18 04:40 Nucleated RBC % 0.3 /100WBC 05/28/18 04:40 PT 11.2 secs (9.9-12.6) 05/27/18 19:27 INR 1.0 (0.8-1.2) 05/27/18 19:27 Sodium 136 mmol/L (135-145) 05/28/18 04:40 Potassium 3.4 mmol/L (3.5-5.0) L 05/28/18 04:40 Chloride 105 mmol/L (101-111) 05/28/18 04:40 Carbon Dioxide 24 mmol/L (21-32) 05/28/18 04:40 Anion Gap 7.0 (6-13) 05/28/18 04:40 BUN 18 mg/dL (6-20) 05/28/18 04:40 Creatinine 1.1 mg/dL (0.6-1.2) 05/28/18 04:40 Estimated GFR (MDRD) 66 (>89) L 05/28/18 04:40 Glucose 116 mg/dL (70-100) H 05/28/18 04:40 Calcium 8.4 mg/dL (8.5-10.3) L 05/28/18 04:40 Phosphorus 2.7 mg/dL (2.5-4.6) 05/28/18 04:40 Magnesium 2.2 mg/dL (1.7-2.8) 05/28/18 04:40 Total Bilirubin 0.7 mg/dL (0.2-1.0) 05/27/18 19:27 AST 26 IU/L (10-42) 05/27/18 19:27 ALT 38 IU/L (10-60) 05/27/18 19:27 Alkaline Phosphatase 59 IU/L (42-121) 05/27/18 19:27 Total Protein 7.4 g/dL (6.7-8.2) 05/27/18 19:27 Albumin 4.2 g/dL (3.2-5.5) 05/27/18 19:27 Globulin 3.2 g/dL (2.1-4.2) 05/27/18 19:27 Albumin/Globulin Ratio 1.3 (1.0-2.2) 05/27/18 19:27 Lipase 43 U/L (22-51) 05/27/18 19:27 Ethyl Alcohol < 5.0 mg/dL 05/27/18 19:27 ABX Reporting Has patient been on IV antibiotics over the past 48 hours?: No Current Medications - Current Medications Current Medications: Active Medications Generic Name Dose Route Start Last Admin Trade Name Freq PRN Reason Stop Dose Admin Acetaminophen 650 mg 05/27/18 22:55 05/28/18 08:57 Tylenol PO 650 mg Q4HR PRN Administration Pain 1 to 4 Hydrocodone Bitart/Acetaminophen 1 tab 05/27/18 22:55 [place] 5/325 PO Q4HR PRN Pain 5 to 7 Albuterol 2.5 mg 05/27/18 22:55 INH Q4HR PRN Wheezing Amlodipine Besylate 5 mg 05/28/18 09:00 05/28/18 09:24 Norvasc PO 5 mg DAILY NEO Administration Atorvastatin Calcium 80 mg 05/28/18 21:00 Lipitor PO QPM NEO Enoxaparin Sodium 40 mg 05/28/18 09:00 05/28/18 08:37 Lovenox SUBQ 40 mg DAILY NEO Administration Famotidine 20 mg 05/28/18 09:00 05/28/18 08:36 Pepcid PO 20 mg BID NEO Administration Lisinopril 20 mg 05/28/18 09:00 05/28/18 09:24 Zestril PO 20 mg DAILY NEO Administration Metoprolol Succinate 25 mg 05/28/18 09:00 05/28/18 09:24 Toprol Xl PO 25 mg DAILY NEO Administration Morphine Sulfate 2 mg 05/27/18 22:55 Morphine (Carpuject) IVP Q2HR PRN Pain 8 to 10 Ondansetron HCl 4 mg 05/27/18 22:55 Zofran Inj IVP Q6HR PRN Nausea / Vomiting Prochlorperazine Edisylate 10 mg 05/27/18 22:55 Compazine Inj IVP Q6HR PRN Nausea / Vomiting Sodium Chloride 10 ml 05/28/18 01:00 05/28/18 08:37 Normal Saline Flush 0.9% IVP 20 ml 0100,0900,1700 NEO Administration Sodium Chloride 10 ml 05/27/18 22:55 Normal Saline Flush 0.9% IVP PRN PRN NEEDED PER PROVIDER ORDERS Zolpidem Tartrate 5 mg 05/27/18 22:55 Ambien PO QPM PRN Insomnia Aspirin/Acetaminophen/Caffeine [Excedrin Migraine Caplet] 1 tab PO Q6HR PRN 05/27/18 Carvedilol 1 tab PO BID 05/27/18 Rosuvastatin Calcium 1 tab PO QPM 05/27/18
[2018-05-28] MEDS ORDERED: ATORVASTATIN 40 MG TABLET PO SCH (21:00)
[2018-05-29 05:29] LABS: BUN - BLOOD UREA NITROGEN 16 mg/dL (6-20); CALCIUM 8.4 mg/dL (8.5-10.3); CARBON DIOXIDE - CO2 24 mmol/L (21-32); CHLORIDE 108 mmol/L (101-111); CREATININE 1.1 mg/dL (0.6-1.2); GFR - MDRD 66 (>89); GLUCOSE 94 mg/dL (70-100); MAGNESIUM 2.3 mg/dL (1.7-2.8); PHOSPHORUS 3.4 mg/dL (2.5-4.6); SODIUM 140 mmol/L (135-145)
[2018-05-29] MEDS: amLODIPine 5 MG TABLET PO SCH (08:21)
[2018-05-29] MEDS: LISINOPRIL 20 MG TABLET PO SCH (08:21)
[2018-05-29] MEDS: METOPROLOL SUCCINATE 25 MG TABLET PO SCH (08:21)
[2018-05-29] MEDS: FAMOTIDINE 20 MG TABLET PO SCH (08:21)
[2018-05-29 08:43] VITALS: BP 126/101
[2018-05-29] MEDS: ENOXAPARIN 40 MG/0.4 ML SYRINGE SUBQ SCH (08:44)
[2018-05-29] MEDS: SODIUM CHLORIDE FLUSH 0.9% 10 ML SYRINGE IVP SCH (08:44)
--- NOTE | 2018-05-29 09:28 | Discharge Plan ---
Discharge Plan Disposition: 01 Home, Self Care Condition: Stable Prescriptions: amLODIPine [Norvasc] 5 mg PO DAILY #30 tablet Atorvastatin Calcium 80 mg PO QPM #30 tablet Lisinopril 20 mg PO DAILY #30 tablet Metoprolol Succinate [Toprol Xl] 25 mg PO DAILY #30 tab.er.24h Diet: Low Sodium Activity Restrictions: Activity as Tolerated Shower Restrictions: No Driving Restrictions: No Instruction Topics: ED HTN Established Additional Instructions or Follow Up instructions: Start taking the daily BP medications: Lisinopril, Metoprolol and Amlodipine, and any other pre-hospital medications can be reumed. See your PCP and/or Lasting Machine Operator Hand Method in follow-up in 1-2weeks and for medication refills. No Smoking: If you smoke, Please STOP! Call for help. Follow-up with: Demian Rios MD [Primary Care Provider] -
[2018-05-29] MEDS: ACETAMINOPHEN 325 MG TABLET PO PRN (11:40)
--- NOTE | 2018-05-29 20:17 | DISCHARGE SUMMARY ---
Physician: Yesenia Powers MD DATE OF ADMISSION: 05/27/2018 DATE OF DISCHARGE: 05/29/2018 HISTORY OF PRESENT ILLNESS: This is a 72-year-old white male with a history of hypertension, CAD with IL and 1-vessel stenting done 7 years ago, and he had been seen by his Maintenance Groundman and expressed a wish to minimize medications; thus he went from triple therapy including losartan, metoprolol, one another medication, to just taking carvedilol. Over the previous couple of days before this admission, he had waxing and waning headaches, difficulty with word finding, stuttering, and then shuffling gait. An ambulance brought him to the emergency room, and he was found to be hypertensive with systolic blood pressure over 220 and diastolic blood pressure over 110. A CT angiogram of the head and neck did not reveal any acute findings. The ER doctor called the [facility] Neurologist publications manager, who recommended admission for blood pressure control and further imaging with an MRI. The patient was placed on a Nicardipine drip and in the ICU for blood pressure management. HOSPITAL COURSE AND DISCHARGE DIAGNOSES 1. PRES (posterior reversible encephalopathy syndrome) versus hypertensive encephalopathy. The patient's headaches, word-finding problems, confusion, and shuffling gait improved as blood pressure was under better control. He underwent an MRI, which did not show any evidence of an acute stroke but showed chronic microangiopathic changes. He was weaned off his Nicardipine drip was started on metoprolol succinate, amlodipine, and lisinopril. The patient's neurologic status returned to his baseline, and he was deemed safe for discharge. 2. Hypertension. The patient made a comment that he was motivated to be in good health so he could ride his motorcycle across the country this spring. He understands that he will have to take 3 blood pressure medications for better control and was discharged on his metoprolol ER, amlodipine, and lisinopril. The carvedilol will be stopped. He is advised to see his PCP or Maintenance Groundman in followup for further medication adjustments and refills. 3. Hyperlipidemia. The patient was continued on his statin while here. LABS AND IMAGING: EKG showed normal sinus rhythm with LVH voltage. All others were reviewed and summarized above. ALLERGIES: NONE. MEDICATIONS AT DISCHARGE 1. Aspirin daily. 2. Tylenol p.r.n. 3. Atorvastatin 80 mg at night. 4. Ambien 5 mg at night p.r.n. insomnia. 5. Norvasc 5 mg daily. 6. Lisinopril 20 mg daily. 7. Toprol-XL 25 mg daily. CONDITION AT DISCHARGE: Stable. PHYSICAL EXAMINATION: VITAL SIGNS: Blood pressure 126/100, heart rate 66 in sinus rhythm. O2 saturation 95% on room air. HEENT: Unremarkable. NECK: Without JVD or carotid bruits. CHEST: Clear. HEART: Sounds normal. No murmur. ABDOMEN: Soft. No bruits. EXTREMITIES: Without edema. NEUROLOGIC: Grossly intact. CODE STATUS: DNR. FOLLOWUP: He is advised to see his PCP and/or Maintenance Groundman within 7-10 days for followup. He was also advised to get clearance from his PCP for making the 1-2 month cross country trip on his motorcycle, that he plans. Time required to complete the entire discharge, dictation, chart review, prescription orders, discussion with the patient: 30 minutes. cc: Demian Rios MD TD: 05/29/2018 18:27 MTDD
== END 2018-05-29 11:45 | disposition home or self-care (01) | DRG 77 ==
LOC: ED 19:14 → ICU 22:55
PROVIDERS: ADMIT Family Medicine Sports Medicine; ATTEND Internal Medicine
DX: I67.4 Hypertensive encephalopathy (principal); I10 Essential (primary) hypertension; E78.00 Pure hypercholesterolemia, unspecified; I67.83 Posterior reversible encephalopathy syndrome; R47.89 Other speech disturbances; E78.5 Hyperlipidemia, unspecified; I25.10 Atherosclerotic heart disease of native coronary artery without angina pectoris; I25.2 Old myocardial infarction; R40.2412 Glasgow coma scale score 13-15, at arrival to emergency department; Z79.82 Long term (current) use of aspirin; Z79.899 Other long term (current) drug therapy; Z95.5 Presence of coronary angioplasty implant and graft
CPT/HCPCS: 36415; 70450; 70496; 70498; 70553; 80048; 80053; 80320; 83690; 83735; 84100; 85025; 85610; 87150; 93005; 96365; 96366; 96375; 96376; 99285; 99291

== ENCOUNTER 2019-10-25 00:07 | Emergency (ER) | payer MEDICARE, OTHER ==
--- NOTE | 2019-10-25 01:09 | ED Physician Documentation ---
PD HPI UPPER EXT INJURY - Stated complaint Stated Complaint: SHOULDER PX/FALL - Chief complaint Chief Complaint: Trauma Ext - History obtained from History obtained from: Patient - Additonal information Additional information: Pt comes to the ED complaining of L shoulder pain after slipping and falling onto his back this evening. He mainly struck his posterior left shoulder, and denies any other pain. No head injury and no LOC. No L hand numbness. Pt has noticed a "lump" on his L superior shoulder. Pain is worse with movement and laying back. Review of Systems Ten Systems: 10 systems reviewed and negative Constitutional: reports: Reviewed and negative Eyes: reports: Reviewed and negative Ears: reports: Reviewed and negative Nose: reports: Reviewed and negative Throat: reports: Reviewed and negative Cardiac: reports: Reviewed and negative Respiratory: reports: Reviewed and negative GI: reports: Reviewed and negative : reports: Reviewed and negative Skin: reports: Reviewed and negative Musculoskeletal: reports: Other (L shoulder pain) Neurologic: reports: Reviewed and negative Psychiatric: reports: Reviewed and negative Endocrine: reports: Reviewed and negative Immunocompromised: reports: Reviewed and negative PD PAST MEDICAL HISTORY - Past Medical History Past Medical History: Yes Cardiovascular: Hypertension, High cholesterol, [place] Respiratory: None Neuro: None Endocrine/Autoimmune: None GI: None : None HEENT: None Psych: Depression Musculoskeletal: None Derm: None - Past Surgical History Past Surgical History: Yes Cardiovascular: Coronary stent - Present Medications Home Medications: Ambulatory Orders Medication Instructions Recorded Confirmed Aspirin/Acetaminophen/Caffeine 1 tab PO Q6HR PRN 05/27/18 10/25/19 [Excedrin Migraine Caplet] Rosuvastatin Calcium 1 tab PO QPM 05/27/18 10/25/19 Zolpidem [Ambien] 5 mg PO QPM PRN 05/28/18 10/25/19 Atorvastatin Calcium 80 mg PO QPM #30 tablet 05/29/18 10/25/19 Metoprolol Succinate [Toprol Xl] 25 mg PO DAILY #30 tab.er.24h 05/29/18 10/25/19 amLODIPine [Norvasc] 5 mg PO DAILY #30 tablet 05/29/18 10/25/19 lisinopriL [Lisinopril] 20 mg PO DAILY #30 tablet 05/29/18 10/25/19 Hydrocodone/Acetaminophen 1 - 2 each PO Q6H PRN #10 tablet 10/25/19 [Hydrocodon-Acetaminophen 5-325] - Allergies Allergies/Adverse Reactions: Allergies Allergy/AdvReac Type Severity Reaction Status Date / Time No Known Drug Allergies Allergy Verified 10/25/19 00:22 - Social History Does the pt smoke?: No Smoking Status: Never smoker Does the pt drink ETOH?: Yes Does the pt have substance abuse?: Yes - Immunizations Immunizations are current?: Yes - POLST Patient has POLST: No POLST Status: DNR PD ED PE NORMAL - Vitals Vital signs reviewed: Yes - General General: Alert and oriented X 3, No acute distress - HEENT HEENT: Atraumatic, PERRL, EOMI, Moist mucous membranes - Neck Neck: Supple, no meningeal sign - Cardiac Cardiac: RRR, No murmur - Respiratory Respiratory: No respiratory distress, Clear bilaterally - Abdomen Abdomen: Soft, Non tender, Non distended - Back Back: No spinal TTP - Derm Derm: Normal color, Warm and dry, No rash - Extremities Extremities: Other (Swelling over L AC joint/distal clavicle. No tenting. No skin breakage. No scapular tenderness. No humeral head tenderness.) - Neuro Neuro: Alert and oriented X 3 - Psych Psych: Normal mood, Normal affect Results - Vitals Vitals: Vital Signs - 24 hr 10/25/19 10/25/19 00:11 01:28 Temperature 36.5 C Heart Rate 81 89 Respiratory 16 16 Rate Blood Pressure 136/94 H 166/99 H O2 Saturation 99 95 Oxygen O2 Source Room air - Rads (name of study) L shoulder xray Radiology: Final report received, EMP read indepedently, See rad report (Distal clavicular fx, just prox to AC joint, without AC joint disruption) Procedures - Splint (location) L shoulder Splint applied by: Tech, Other (under my direct supervision) Type of splint: Other (Shoulder immobilizer) Other: Patient tolerated well, No complications, Neurovascular intact, Good alignment, Sling provided PD MEDICAL DECISION MAKING - ED course Complexity details: reviewed results, re-evaluated patient, considered differential, d/w patient ED course: Pt was worked up with L shoulder XR, and found to have a distal clavicular fx with displacement. He was immobilized, as above, and need for follow-up within the week was discussed with pt. He was provided with analgesia. Departure - Departure Disposition: 01 Home, Self Care Clinical Impression: Clavicular fracture Qualifiers: Encounter type: initial encounter Clavicle location: lateral end Fracture type: closed Fracture alignment: displaced Laterality: left Qualified Code(s): S42.032A - Displaced fracture of lateral end of left clavicle, initial encounter for closed fracture Condition: Stable Instructions: ED Fx Clavicle Follow-Up: Ori Melendez MD [Provider Admit Priv/Credential] - Prescriptions: Hydrocodone/Acetaminophen [Hydrocodon-Acetaminophen 5-325] 1 - 2 each PO Q6H PRN #10 tablet PRN Reason: pain Comments: Your x-ray shows a break at the very end of your clavicle, or collarbone, where it attaches to the small bony process coming from your shoulder blade. As we have discussed, this is called your acromioclavicular joint, and can be traumatized when a sudden force is applied to the shoulder. While there is nothing emergently to be done tonight with your collarbone, it is important that you call the orthopedic office tomorrow morning to set up an appointment to be seen within the next week to determine whether anything further will need to be done with this in the near future. The orthopedist may determine that the fracture should simply be allowed to heal on its own, or he may recommend surgical management. Please wear the shoulder immobilizer until you were seen in order for PDX and given further instructions. You may use ice, ibuprofen, and the medications prescribed to help with the pain. Discharge Date/Time: 10/25/19 01:35
--- NOTE | 2019-10-25 01:16 | XRAY Report ---
Reason: fall/injury/pain Procedure Date: 10/25/2019 Accession Number: [id number] / [id number] Procedure: XR - Shoulder 3 View LT CPT Code: Final Report FULL RESULT: EXAM: LEFT SHOULDER RADIOGRAPHY EXAM DATE: 10/25/2019 12:56 AM. CLINICAL HISTORY: Fall/injury/pain. COMPARISON: None. TECHNIQUE: 3 views. FINDINGS: Bones: Fracture of the distal clavicle. Joints: No dislocation seen. Glenohumeral joint and acromioclavicular joint appear intact. Soft tissues: Grossly unremarkable. IMPRESSION: 1. Fracture of the distal clavicle, just proximal to the acromioclavicular joint. RADIA
[2019-10-25 01:36] VITALS: BP 166/99
== END 2019-10-25 01:35 | disposition home or self-care (01) ==
LOC: ED 00:07
DX: S42.032A Displaced fracture of lateral end of left clavicle, initial encounter for closed fracture (principal); W10.9XXA Fall (on) (from) unspecified stairs and steps, initial encounter; I10 Essential (primary) hypertension; Z79.82 Long term (current) use of aspirin
CPT/HCPCS: 99283; 99284

== ENCOUNTER 2020-12-03 10:40 | Emergency (ER) | payer MEDICARE, OTHER ==
--- NOTE | 2020-12-03 10:56 | ED Physician Documentation ---
PD HPI DYSPNEA - Stated complaint Stated Complaint: SOA - Chief complaint Chief Complaint: Resp - History obtained from History obtained from: Patient - History of Present Illness Timing - onset: How many days ago (6) Timing - onset during: Rest Timing - duration: Days (6) Timing - details: Gradual onset, Still present Inciting event(s): URI Improved by: O2 Worsened by: Coughing Associated symptoms: Cough. No: Fever, Wheezing, Chest pain / discomfort, Palpitations, Diaphoresis, Bilateral edema, Unilateral edema Similar symptoms before: Has not had sx before Recently seen: Not recently seen - Additional information Additional information: Previously well 75-year-old male with a history of coronary artery disease who has a coronary artery stent in place has developed some dyspnea. He does not usually have any evidence of lung disease. He has developed this about 6 days ago at rest he describes it as a difficulty getting a full deep breath without wheeze. He states that he is short of breath walking across the room. He does endorse a cough without fever. The cough is nonproductive. He denies any period of confinement. Denies any swelling to his extremities. He has not had these symptoms previously. Review of Systems Constitutional: denies: Fever Eyes: denies: Decreased vision Ears: denies: Ear pain Nose: denies: Rhinorrhea / runny nose, Congestion Throat: denies: Sore throat Cardiac: denies: Chest pain / pressure, Palpitations Respiratory: reports: Dyspnea, Cough. denies: Wheezing GI: denies: Abdominal Pain, Nausea, Vomiting, Constipation, Diarrhea : denies: Dysuria, Frequency PD PAST MEDICAL HISTORY - Past Medical History Cardiovascular: Hypertension, High cholesterol, [place] Respiratory: None Neuro: None Endocrine/Autoimmune: None GI: None : None HEENT: None Psych: Depression Musculoskeletal: None Derm: None - Past Surgical History Past Surgical History: Yes Cardiovascular: Coronary stent - Present Medications Home Medications: Ambulatory Orders Medication Instructions Recorded Confirmed Aspirin/Acetaminophen/Caffeine 1 tab PO Q6HR PRN 05/27/18 12/03/20 [Excedrin Migraine Caplet] Rosuvastatin Calcium 1 tab PO QPM 05/27/18 12/03/20 Metoprolol Succinate [Toprol Xl] 25 mg PO DAILY #30 tab.er.24h 05/29/18 12/03/20 amLODIPine [Norvasc] 5 mg PO DAILY #30 tablet 05/29/18 12/03/20 lisinopriL [Lisinopril] 20 mg PO DAILY #30 tablet 05/29/18 12/03/20 Albuterol Sulf [Ventolin Hfa 1 - 2 puffs INH Q4HR PRN #1 inhaler 12/03/20 Inhaler] Rivaroxaban [Xarelto] 15 mg PO BID #42 tablet 12/03/20 - Allergies Allergies/Adverse Reactions: Allergies Allergy/AdvReac Type Severity Reaction Status Date / Time No Known Drug Allergies Allergy Verified 12/03/20 10:54 - Social History Does the pt smoke?: No Smoking Status: Never smoker Does the pt drink ETOH?: Yes Does the pt have substance abuse?: Yes - Immunizations Immunizations are current?: Yes - POLST Patient has POLST: No POLST Status: DNR PD ED PE NORMAL - Vitals Vital signs reviewed: Yes (Hypoxic no room air) - General General: Alert and oriented X 3, No acute distress, Well developed/nourished - HEENT HEENT: Atraumatic, PERRL - Neck Neck: Supple, no meningeal sign, No bony TTP - Cardiac Cardiac: RRR, No murmur - Respiratory Respiratory: No respiratory distress, Clear bilaterally - Abdomen Abdomen: Normal bowel sounds, Soft, Non tender, Non distended, No organomegaly - Back Back: No CVA TTP, No spinal TTP - Derm Derm: Normal color, Warm and dry, No rash - Extremities Extremities: No deformity, No edema - Neuro Neuro: Alert and oriented X 3, 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, No motor deficit, No sensory deficit, Normal speech Eye Opening: Spontaneous Motor: Obeys Commands Verbal: Oriented GCS Score: 15 - Psych Psych: Normal mood, Normal affect Results - Vitals Vitals: Vital Signs - 24 hr 12/03/20 12/03/20 12/03/20 10:45 10:53 10:56 Temperature 36.3 C L Heart Rate 94 Respiratory 24 Rate Blood Pressure 116/67 O2 Saturation 90 L 84 L 94 12/03/20 12/03/20 11:35 12:53 Temperature 36.8 C Heart Rate 88 90 Respiratory 16 18 Rate Blood Pressure 116/86 H O2 Saturation 94 Oxygen O2 Source Room air Oxygen Flow Rate 3 - EKG (time done) 1121 Rate: Rate (enter#) (88) Rhythm: NSR Intervals: Prolonged QT, RBBB (incomplete) Compare to prior EKG: Changed from prior EKG (SPT 05-27-2018 the rate has increased the LVH has resolved and the QT interval has prolonged. ) Computer interpretation: Agree with computer - Labs Labs: Laboratory Tests 12/03/20 12/03/20 12/03/20 11:19 11:19 11:19 WBC 11.7 H RBC 5.14 Hgb 16.4 Hct 48.2 MCV 93.8 MCH 31.9 H MCHC 34.0 RDW 12.6 Plt Count 187 MPV 10.4 Neut # (Auto) 8.2 H Lymph # (Auto) 1.8 [place] # (Auto) 1.5 H Eos # (Auto) 0.1 Baso # (Auto) 0.1 Absolute Nucleated RBC 0.00 Nucleated RBC % 0.0 D-Dimer Sodium 137 Potassium 3.8 Chloride 99 L Carbon Dioxide 24 Anion Gap 14.0 H BUN 35 H Creatinine 2.0 H Estimated GFR (MDRD) 33 L Glucose 143 H Calcium 9.0 Total Bilirubin 1.7 H AST 31 ALT 44 Alkaline Phosphatase 60 Troponin I High Sens 462.4 H* B-Natriuretic Peptide Total Protein 7.7 Albumin 4.1 Globulin 3.6 Albumin/Globulin Ratio 1.1 Lipase 31 Nasal Adenovirus (PCR) Nasal B. parapertussis DNA (PCR) Nasal Coronavir 229E PCR Nasal Coronavir HKU1 PCR Nasal Coronavir NL63 PCR Nasal Coronavir OC43 PCR Nasal Enterovir/Rhinovir PCR Nasal Influenza B PCR Nasal Influenza A PCR Nasal Parainfluen 1 PCR Nasal Parainfluen 2 PCR Nasal Parainfluen 3 PCR Nasal Parainfluen 4 PCR Nasal RSV (PCR) Nasal B.pertussis DNA PCR Nasal C.pneumoniae (PCR) [place] Human Metapneumo PCR Nasal M.pneumoniae (PCR) Nasal SARS-CoV-2 (PCR) 12/03/20 12/03/20 12/03/20 11:19 11:19 11:19 WBC RBC Hgb Hct MCV MCH MCHC RDW Plt Count MPV Neut # (Auto) Lymph # (Auto) [place] # (Auto) Eos # (Auto) Baso # (Auto) Absolute Nucleated RBC Nucleated RBC % D-Dimer > 1050.0 H Sodium Potassium Chloride Carbon Dioxide Anion Gap BUN Creatinine Estimated GFR (MDRD) Glucose Calcium Total Bilirubin AST ALT Alkaline Phosphatase Troponin I High Sens B-Natriuretic Peptide 516 H Total Protein Albumin Globulin Albumin/Globulin Ratio Lipase Nasal Adenovirus (PCR) NOT DETECTED Nasal B. parapertussis DNA (PCR) NOT DETECTED Nasal Coronavir 229E PCR NOT DETECTED Nasal Coronavir HKU1 PCR NOT DETECTED Nasal Coronavir NL63 PCR NOT DETECTED Nasal Coronavir OC43 PCR NOT DETECTED Nasal Enterovir/Rhinovir PCR NOT DETECTED Nasal Influenza B PCR NOT DETECTED Nasal Influenza A PCR NOT DETECTED Nasal Parainfluen 1 PCR NOT DETECTED Nasal Parainfluen 2 PCR NOT DETECTED Nasal Parainfluen 3 PCR NOT DETECTED Nasal Parainfluen 4 PCR NOT DETECTED Nasal RSV (PCR) NOT DETECTED Nasal B.pertussis DNA PCR NOT DETECTED Nasal C.pneumoniae (PCR) NOT DETECTED [place] Human Metapneumo PCR NOT DETECTED Nasal M.pneumoniae (PCR) NOT DETECTED Nasal SARS-CoV-2 (PCR) NOT DETECTED - Rads (name of study) chest Radiology: Prelim report reviewed (Impression: No acute pulmonary process.), EMP read indepedently, See rad report Procedures - IVC sono (time) 1108 Bedside IVC sono: IVC measures (cm) (1.88), IVC collapsed c insp (cm) (complete), Euvolemia PD MEDICAL DECISION MAKING - ED course Complexity details: reviewed results, re-evaluated patient, considered differential, d/w patient ED course: 75-year-old male who is developed shortness of breath and comes into the emergency department with hypoxia has developed a cough with this as well. On physical exam he does not have any evidence of wheeze or rhonchi to the lungs he appears to be moving fair air but is hypoxic. He has been immunized against Covid in July of this year. He does not feel he has any specific exposure to anyone with Covid. Here in the emergency department he does not appear to be in failure on interrogation of the inferior vena cava he has no swelling to his extremities and we have initiated a work-up after placing nasal cannula oxygen. The patient is found to have a markedly elevated D-dimer consistent with the possibility of a pulmonary embolism. This would be an explanation for the patient's symptoms. He did however get relief with the use of a DuoNeb treatment. The patient has refused hospitalization and specifically refused transfer to another hospital to treat coronary disease. I encouraged the patient to stay in the hospital here even for oxygen therapy and he refused that as well. He is administered Xarelto here in the emergency department. I encouraged the patient to take this twice per day to take an additional dose this evening at 10 PM and again tomorrow at 10 AM. He will use his regular cardiac meds as well. He did get relief from a DuoNeb treatment and he is getting a second treatment and will get teaching on the use of a spacer with an inhaler.The patient's oxygen saturation is up to about 90%. On his CT scan he does not have evidence of right heart strain. There is no flattening of the right heart. There is some reflux of contrast into the inferior vena cava. He is signed out against medical advice. Departure - Departure Disposition: Against Medical Advice Clinical Impression: NSTEMI (non-ST elevated myocardial infarction) Pulmonary embolism Qualifiers: Pulmonary embolism type: multiple subsegmental (without acute cor pulmonale) Qualified Code(s): I26.94 - Multiple subsegmental pulmonary emboli without acute cor pulmonale Condition: Serious Instructions: ED Reactive Airway Disease, Embolism Pulmonary Follow-Up: Дмитрий Zamorano MD [Primary Care Provider] - Prescriptions: Albuterol Sulf [Ventolin Hfa Inhaler] 1 - 2 puffs INH Q4HR PRN #1 inhaler PRN Reason: Shortness Of Air/Wheezing Rivaroxaban [Xarelto] 15 mg PO BID #42 tablet Comments: Today there is evidence of multiple pulmonary emboli and evidence of strain on your heart. The recommendation is to be hospitalized for this. Since you have chosen to not be hospitalized we will do the best we can to treat this. The primary treatment for this is the use of the Xarelto which is a blood thinner. You will need to take this twice per day for 3 weeks and then you will need to increase the dose and take it once per day. You will need to follow-up with your primary care doctor within the next 3 weeks to refill this prescription for the Xarelto at a higher dose. We have given you an inhaler this may help with your breathing. We are here all of the time. If you are having difficulty breathing and worsening come back in and see us.
[2020-12-03] MEDS ORDERED: IPRATROPIUM/ALBUTEROL 3 ML NEB INH STA ×2 (11:13→16:00)
[2020-12-03 11:29] LABS: BASOPHILS # (AUTO) 0.1 10^3/uL (0.0-0.1); BASOPHILS % (AUTO) 0.6 %; EOSINOPHILS # (AUTO) 0.1 10^3/uL (0.0-0.7); EOSINOPHILS % (AUTO) 0.5 %; HCT - HEMATOCRIT 48.2 % (42.0-52.0); HGB - HEMOGLOBIN 16.4 g/dL (14.0-18.0); LYMPHOCYTES # (AUTO) 1.8 10^3/uL (1.5-3.5); LYMPHOCYTES % (AUTO) 15.7 %; MEAN CORPUSCULAR HEMOGLOBIN 31.9 pg (27.0-31.0); MEAN CORPUSCULAR VOLUME 93.8 fL (80.0-94.0); MEAN PLATELET VOLUME 10.4 fL (7.4-11.4); MONOCYTES # (AUTO) 1.5 10^3/uL (0.0-1.0); MONOCYTES % (AUTO) 12.7 %; NEUTROPHILS # (AUTO) 8.2 10^3/uL (1.5-6.6); PLT - PLATELET COUNT 187 10^3/uL (130-450); RED BLOOD COUNT 5.14 10^6/uL (4.70-6.10); RED CELL DISTRIBUTION WIDTH 12.6 % (12.0-15.0); WHITE BLOOD COUNT 11.7 x10^3/uL (4.8-10.8)
[2020-12-03 11:45] LABS: ALBUMIN 4.1 g/dL (3.2-5.5); ALBUMIN/GLOBULIN RATIO 1.1 (1.0-2.2); BILIRUBIN,TOTAL 1.7 mg/dL (0.2-1.0); POTASSIUM 3.8 mmol/L (3.5-5.0); TOTAL PROTEIN 7.7 g/dL (6.7-8.2)
--- NOTE | 2020-12-03 12:01 | XRAY Report ---
PROCEDURE: Chest 1 View X-Ray INDICATIONS: chest pain TECHNIQUE: One view of the chest was acquired. COMPARISON: Chest x-ray 5-17 FINDINGS: Surgical changes and devices: None. Lungs and pleura: No pleural effusions or pneumothorax. Lungs are clear. Mediastinum: Mediastinal contours appear normal. Heart size is normal. Bones and chest wall: No suspicious bony lesions. Overlying soft tissues appear unremarkable. IMPRESSION: No acute pulmonary process. Reviewed by: Petra Flores MD on 12/03/2020 11:59 AM PDT Approved by: Petra Flores MD on 12/03/2020 11:59 AM PDT Station ID: [id number]
[2020-12-03 12:32] LABS: B. PARAPERTUSSIS- RESP PCR PAN NOT DETECTED; B. PERTUSSIS- RESP PCR PANEL NOT DETECTED; C. PNEUMONIAE- RESP PCR PANEL NOT DETECTED; CORONAVIRUS 229E-RESP PCR NOT DETECTED; CORONAVIRUS HKU1-RESP PCR NOT DETECTED; CORONAVIRUS NL63-RESP PCR NOT DETECTED; CORONAVIRUS OC43-RESP PCR NOT DETECTED; HUMAN METAPNEUMOVIRUS NOT DETECTED; INFLUENZA A- RESP PCR PANEL NOT DETECTED; INFLUENZA B - RESP PCR PANEL NOT DETECTED; M. PNEUMONIAE- RESP PCR PANEL NOT DETECTED; PARAINFLUENZA VIRUS 1 NOT DETECTED; PARAINFLUENZA VIRUS 2 NOT DETECTED; PARAINFLUENZA VIRUS 3 NOT DETECTED; PARAINFLUENZA VIRUS 4 NOT DETECTED; RHINOVIRUS/ENTEROVIRUS NOT DETECTED; RSV- RESP PCR PANEL NOT DETECTED; SARS-CoV-2 -RESP PCR PANEL NOT DETECTED
[2020-12-03] MEDS ORDERED: FOLIC ACID INJ 1 MG, THIAMINE INJ 100 MG, MAGNESIUM SULFATE 2 GM, MULTIVITAMIN 10 ML in... IV STA ×5 (12:38)
[2020-12-03] MEDS ORDERED: IOVERSOL 320 100 ML VIAL IVP ONE ×2 (13:12→17:04)
--- NOTE | 2020-12-03 15:18 | CT Report ---
PROCEDURE: ANGIO CHEST W/WO INDICATIONS: soa PE suspected CONTRAST: IV CONTRAST: Optiray 320 ml: 80 PO CONTRAST: *NO PO CONTRAST TECHNIQUE: After the administration of intravenous contrast, 2 mm thick sections acquired from the pulmonary api tiffany to the posterior costophrenic angles. 3-dimensional maximum intensity projection (MIP) coronal a nd sagittal reformats were then acquired through the thorax. For radiation dose reduction, the follow ing was used: automated exposure control, adjustment of mA and/or kV according to patient size. COMPARISON: Chest x-ray 12/03/2020 FINDINGS: Image quality: Excellent. Pulmonary arteries: Pulmonary arteries are normal in size. Filling defects are identified within th e distal aspects of both the left and right main pulmonary arteries. Significant emboli are noted wit hin the segmental branches extending to the lower lobes bilaterally and to a lesser extent upper lobe s. No saddle emboli are identified. Lungs and pleura: Lungs are clear. No pleural effusions or pneumothorax. Central and peripheral ai rways are patent. Mediastinum: Heart size is normal, without pericardial effusion. No visualized right heart strain. No mediastinal or hilar adenopathy. Thoracic aorta is normal in caliber and enhancement. Esophagus is normal in caliber, without hiatal hernia. Bones and chest wall: No suspicious bony lesions. Ribs and thoracic spine appear intact throughout. No axillary or supraclavicular adenopathy. The thyroid is normal in size and there are no incident al findings. Abdomen: Visualized upper abdominal solid organs appear normal in the early arterial phase of enhanc ement. IMPRESSION: Pulmonary emboli are present within the distal aspects of the main pulmonary arteries bilaterally ext ending into both the lower and upper lobes as described above. No definitive right heart strain is id entified. The above findings were discussed with Dr. Sean Najera on 12/03/2020 at 3:15 PM. Reviewed by: Petra Flores MD on 12/03/2020 3:16 PM PDT Approved by: Petra Flores MD on 12/03/2020 3:16 PM PDT Station ID: [id number]
[2020-12-03] MEDS ORDERED: RIVAROXABAN 15 MG TABLET PO STA (15:30)
[2020-12-03 17:07] VITALS: BP 120/76
--- NOTE | 2020-12-03 20:30 | ED Physician Documentation ---
ED Addendum - Addendum Addendum: 12/03/20 20:28 Took call from pharmacist, Jinnyrelto is not covered. He does not know what the preferred agent is for his insurance. I told him that he could either fill Lovenox 90 mg subcu twice daily plus Pradaxa 150 mg twice daily or Eliquis 10 mg twice daily for 7 days followed by 5 mg twice daily.
== END 2020-12-03 17:08 | disposition left against medical advice (07) ==
LOC: ED 10:40
DX: I26.94 Multiple subsegmental thrombotic pulmonary emboli without acute cor pulmonale (principal); I21.4 Non-ST elevation (NSTEMI) myocardial infarction; R09.02 Hypoxemia; Z53.29 Procedure and treatment not carried out because of patient's decision for other reasons; I45.10 Unspecified right bundle-branch block; I45.81 Long QT syndrome; I25.10 Atherosclerotic heart disease of native coronary artery without angina pectoris; Z95.5 Presence of coronary angioplasty implant and graft; I10 Essential (primary) hypertension; Z79.82 Long term (current) use of aspirin; Z20.822 Contact with and (suspected) exposure to COVID-19
CPT/HCPCS: 36415; 71045; 71275; 80053; 83690; 83880; 84484; 85025; 85379; 87631; 93005; 94640; 94664; 96365; 96366; 99283; 99284; A9270; J3411; Q9967; 0202U

== ENCOUNTER 2020-12-15 09:23 | Outpatient (CLI) | payer MEDICARE, OTHER | END 2020-12-15 09:24 | disposition critical access hospital (66) | LOC: EMS 09:23 | DX: R06.09 Other forms of dyspnea (principal) | CPT/HCPCS: A0425; A0429 ==

== ENCOUNTER 2020-12-15 09:32 | Emergency (ER) | payer MEDICARE, OTHER ==
--- NOTE | 2020-12-15 10:12 | ED Physician Documentation ---
PD HPI DYSPNEA - Stated complaint Stated Complaint: SOA - Chief complaint Chief Complaint: Resp - History obtained from History obtained from: Patient - History of Present Illness Timing - onset: Today (worse), How many weeks ago (has had dyspnea for 2 weeks) Timing - duration: Days (patient has had dyspnea and fatigue for past 2 weeks after Dx with PEs.) Timing - details: Gradual onset, Waxing and waning Inciting event(s): Exercise (patient has had dyspnea and fatigue with mild activity for 2 weeks due to PEs, so has not been getting up and out of bed very much. This concerns . This morning, pt with dyuspnea still and /neeighber who is EMT noted sats 86-90% with him walking. Brought to ED for eval of this.) Improved by: Rest Worsened by: Exertion. No: Laying flat Associated symptoms: Unilateral edema. No: Fever, Cough, Wheezing, Bilateral edema Similar symptoms before: Diagnosis (recent Dx of multiple pulmonary emboli.) Recently seen: Emergency Dept (12/03/20 with dyspnea and Dx PEs on CT-A chest. wanted to go home so discharged on DOAC. Had worse breathing several days ago so went to [facility] and was admitted for couple of days, with ECHO done. No signs of heart strain on labs/ECHO. discharged with added albuterol neb and incentive spirometer), Admitted Review of Systems Constitutional: denies: Fever, Chills Nose: denies: Rhinorrhea / runny nose, Congestion Throat: denies: Sore throat Cardiac: reports: Pedal edema. denies: Chest pain / pressure, Palpitations, Calf pain Respiratory: reports: Dyspnea. denies: Cough, Wheezing GI: denies: Vomiting, Diarrhea, Bloody / black stool Skin: denies: Rash, Lesions Neurologic: denies: Altered mental status, Headache PD PAST MEDICAL HISTORY - Past Medical History Past Medical History: Yes Cardiovascular: Hypertension, High cholesterol, Coronary artery disease, Pulmonary embolism, [place] Respiratory: None Neuro: None Endocrine/Autoimmune: None GI: None : Other HEENT: None Psych: Depression Musculoskeletal: None Derm: None - Past Surgical History Past Surgical History: Yes Cardiovascular: Coronary stent - Present Medications Home Medications: Ambulatory Orders Medication Instructions Recorded Confirmed Rosuvastatin Calcium 40 tab PO QPM 05/27/18 12/15/20 Metoprolol Succinate [Toprol Xl] 25 mg PO DAILY #30 tab.er.24h 05/29/18 12/15/20 Albuterol Sulf [Ventolin Hfa 1 - 2 puffs INH Q4HR PRN #1 inhaler 12/03/20 12/15/20 Inhaler] Acetaminophen [Tylenol] 650 mg PO Q4HR PRN 12/15/20 12/15/20 Albuterol 2.5 mg INH Q4H PRN #30 neb 12/15/20 Albuterol Sulf [Ventolin Hfa 3 - 4 puffs INH Q4HR PRN #1 inhaler 12/15/20 Inhaler] Aspirin [Aspirin EC] 81 mg PO DAILY 12/15/20 12/15/20 Dabigatran [Pradaxa] 150 mg PO BID 12/15/20 12/15/20 Loperamide [Imodium] 2 mg PO Q3HR PRN 12/15/20 12/15/20 Melatonin 3 mg PO HS PRN 12/15/20 12/15/20 Nebulizer and Compressor 1 each MC QID #1 each 12/15/20 [Compressor Nebulizer System] Senna [Senokot] 8.6 mg PO BID PRN 12/15/20 12/15/20 amLODIPine [Norvasc] 5 mg PO BID 12/15/20 12/15/20 lisinopriL [Lisinopril] 40 mg PO DAILY 12/15/20 12/15/20 polyethylene glycoL 3350 17 gm PO DAILY PRN 12/15/20 12/15/20 [Polyethylene Glycol 3350] - Allergies Allergies/Adverse Reactions: Allergies Allergy/AdvReac Type Severity Reaction Status Date / Time No Known Drug Allergies Allergy Verified 12/15/20 09:39 - Social History Does the pt smoke?: No Smoking Status: Never smoker Does the pt drink ETOH?: No Does the pt have substance abuse?: Yes - Immunizations Immunizations are current?: Yes - POLST Patient has POLST: No POLST Status: DNR PD ED PE NORMAL - Vitals Vital signs reviewed: Yes (sats 95% room air) - General General: Alert and oriented X 3, No acute distress, Well developed/nourished - HEENT HEENT: Pharynx benign - Neck Neck: Supple, no meningeal sign, No adenopathy - Cardiac Cardiac: RRR, No murmur - Respiratory Respiratory: Clear bilaterally - Abdomen Abdomen: Soft, Non tender - Derm Derm: Normal color, Warm and dry - Extremities Extremities: Normal ROM s pain, No edema, No calf tenderness / cord - Neuro Neuro: Alert and oriented X 3, No motor deficit, No sensory deficit, Normal speech Eye Opening: Spontaneous Motor: Obeys Commands Verbal: Oriented GCS Score: 15 - Psych Psych: Normal mood, Normal affect Results - Vitals Vitals: Vital Signs - 24 hr 12/15/20 12/15/20 12/15/20 09:39 09:58 11:07 Temperature 37.1 C 36.6 C Heart Rate 91 84 82 Respiratory 31 H 19 12 Rate Blood Pressure 105/69 105/69 O2 Saturation 95 95 12/15/20 12/15/20 12/15/20 12:00 12:08 12:10 Temperature Heart Rate 91 92 103 H Respiratory 23 Rate Blood Pressure 110/64 O2 Saturation 94 94 97 12/15/20 12:16 Temperature Heart Rate 91 Respiratory 31 H Rate Blood Pressure 126/77 O2 Saturation 97 Oxygen O2 Source Room air - Rads (name of study) chest xray Radiology: Prelim report reviewed (no infiltrates. ), See rad report PD MEDICAL DECISION MAKING - ED course Complexity details: re-evaluated patient (the patient has adequate sats 94-95% RA and maintains that walking the length of hallway in ER. Had gotten albuterol neb, so there may ahve been some mucous plugging or atelectasis at home that had led to low sats there. Seems to be maintaining sats here. concerned. ), d/w PMD (Dr. Zamorano - who is happy to continue care on the patient. He did not have appts open for 2 weeks or so, so that may have been the confusion with patient and front office. ) ED course: concerned about low sats at home again. With sats good here, does not qualify for home oxygen. I presume sats lower at home this morning due to atelectasis or mucous plugging. Encouraged them to use Albuterol MDI or nebulizer and also the incentive spirometer he had been discharged with. I also talked with PMD Dr Zamorano, who says he will of course continue care for the patient. Patient to make appt for Monday (3 days from now). Departure - Departure Disposition: Home, Self Care Clinical Impression: Dyspnea Qualifiers: Dyspnea type: dyspnea on exertion Qualified Code(s): R06.00 - Dyspnea, unspecified Pulmonary embolism Qualifiers: Pulmonary embolism type: unspecified Chronicity: unspecified Acute cor pulmonale presence: without acute cor pulmonale Qualified Code(s): I26.99 - Other pulmonary embolism without acute cor pulmonale Condition: Stable Follow-Up: Дмитрий Zamorano MD [Primary Care Provider] - Prescriptions: Albuterol Sulf [Ventolin Hfa Inhaler] 3 - 4 puffs INH Q4HR PRN #1 inhaler PRN Reason: Shortness Of Air/Wheezing Albuterol 2.5 mg INH Q4H PRN #30 neb PRN Reason: Wheezing Nebulizer and Compressor [Compressor Nebulizer System] 1 each QID #1 each Comments: Continue your current medications, in particular the blood thinner. Use albuterol nebulizer or inhaler 4 times daily for the next 1 to 2 weeks. Use it extra times if needed for feeling short of breath. Use your incentive spirometer regularly 4 times daily as well. These treatments with the albuterol and incentive spirometer are meant to keep the functioning lung open with good airflow to maintain oxygenation. This will be more effective than extra oxygen per se since your oxygenation sats are adequate here. I talked with Dr. Zamorano directly on the phone today and he is not sure why you were told that he would not see you. He is happy to continue care for you. He does not have any open appointments for couple of weeks and that might of been where the front office misunderstanding was. He asked that you call the office to make an appointment with one of the [facility] providers for this Monday. Dr. Zamorano will be in the office on that day to and he will stop in and see you during the visit as well even though it will be one of his official appointment spots. He will continue care with you as well. Try to be up and active with short walks several times daily to improve lung function as well. The blood thinner will try to help along with your body to resorb the clots that are in the lung and you should expect improvement in your lung function and energy level and breathing ability over the next 4 weeks or so. Discharge Date/Time: 12/15/20 14:25
[2020-12-15] MEDS ORDERED: ALBUTEROL NEB 2.5 MG/3 ML INH STA (10:40)
--- NOTE | 2020-12-15 10:53 | XRAY Report ---
PROCEDURE: Chest 1 View X-Ray INDICATIONS: chest pain TECHNIQUE: One view of the chest was acquired. COMPARISON: Chest x-ray 12/03/2020 FINDINGS: Surgical changes and devices: None. Lungs and pleura: No pleural effusions or pneumothorax. Minimal increased pulmonary vascularity. Mediastinum: Mediastinal contours appear normal. Heart size is normal. Bones and chest wall: No suspicious bony lesions. Overlying soft tissues appear unremarkable. IMPRESSION: Minimal increased vascularity suggestive of edema. Reviewed by: Petra Flores MD on 12/15/2020 10:52 AM PDT Approved by: Petra Flores MD on 12/15/2020 10:52 AM PDT Station ID: [id number]
[2020-12-15 12:17] VITALS: BP 126/77
== END 2020-12-15 14:25 | disposition home or self-care (01) ==
LOC: EDUNIT# → ED 09:32
DX: I26.99 Other pulmonary embolism without acute cor pulmonale (principal); I10 Essential (primary) hypertension
CPT/HCPCS: 93005; 94640; 99284

== ENCOUNTER 2020-12-20 23:03 | Emergency (ER) | payer MEDICARE, OTHER ==
--- NOTE | 2020-12-20 23:19 | ED Physician Documentation ---
PD HPI ABD PAIN - Stated complaint Stated Complaint: ABD PX - Chief complaint Chief Complaint: Abd Pain - History obtained from History obtained from: Patient - History of Present Illness Timing - onset: How many hours ago (3) Timing - duration: Hours (3) Timing - details: Abrupt onset, Still present, Constant. No: Waxing and waning Quality: Cramping, Aching, Pain Location: Epigastric, LUQ Radiation: No: Chest, Lower back Improved by: Laying still Worsened by: Palpation. No: Moving, Breathing Associated symptoms: Nausea, Constipation. No: Fever, Vomiting, Diarrhea (has had continued loose stools for awhile since his AR/stent and starting new meds. Has been on Imodium lately since hospitalized for PE. Has had firm small stools the past couple of days.), Near syncope / syncope, Loss of appetite Similar symptoms before: Has not had sx before Recently seen: Emergency Dept (Had saddle/large PEs early November and in [place]. On DOAC. In ER last week for dyspnea and improved with albuterol nebs and incentive spirometer. Now with the abd pain that is new for him.), Admitted Review of Systems Constitutional: denies: Fever, Chills Nose: denies: Rhinorrhea / runny nose, Congestion Throat: denies: Sore throat Cardiac: denies: Chest pain / pressure, Palpitations, Pedal edema, Calf pain Respiratory: reports: Dyspnea. denies: Cough GI: reports: Abdominal Pain (just the past few hours), Nausea, Constipation. denies: Abdominal Swelling, Vomiting, Diarrhea, Bloody / black stool : denies: Dysuria, Frequency Skin: denies: Rash, Lesions Neurologic: reports: Generalized weakness. denies: Near syncope PD PAST MEDICAL HISTORY - Past Medical History Cardiovascular: Hypertension, High cholesterol, Coronary artery disease, Pulmonary embolism, AR Respiratory: None Neuro: None Endocrine/Autoimmune: None GI: None : Other HEENT: None Psych: Depression Musculoskeletal: None Derm: None - Past Surgical History Past Surgical History: Yes Cardiovascular: Coronary stent - Present Medications Home Medications: Ambulatory Orders Medication Instructions Recorded Confirmed Rosuvastatin Calcium 40 tab PO QPM 05/27/18 12/15/20 Metoprolol Succinate [Toprol Xl] 25 mg PO DAILY #30 tab.er.24h 05/29/18 12/15/20 Albuterol Sulf [Ventolin Hfa 1 - 2 puffs INH Q4HR PRN #1 inhaler 12/03/20 12/15/20 Inhaler] Acetaminophen [Tylenol] 650 mg PO Q4HR PRN 12/15/20 12/15/20 Albuterol 2.5 mg INH Q4H PRN #30 neb 12/15/20 Albuterol Sulf [Ventolin Hfa 3 - 4 puffs INH Q4HR PRN #1 inhaler 12/15/20 Inhaler] Aspirin [Aspirin EC] 81 mg PO DAILY 12/15/20 12/15/20 Dabigatran [Pradaxa] 150 mg PO BID 12/15/20 12/15/20 Loperamide [Imodium] 2 mg PO Q3HR PRN 12/15/20 12/15/20 Melatonin 3 mg PO HS PRN 12/15/20 12/15/20 Nebulizer and Compressor 1 each MC QID #1 each 12/15/20 [Compressor Nebulizer System] Senna [Senokot] 8.6 mg PO BID PRN 12/15/20 12/15/20 amLODIPine [Norvasc] 5 mg PO BID 12/15/20 12/15/20 lisinopriL [Lisinopril] 40 mg PO DAILY 12/15/20 12/15/20 polyethylene glycoL 3350 17 gm PO DAILY PRN 12/15/20 12/15/20 [Polyethylene Glycol 3350] - Allergies Allergies/Adverse Reactions: Allergies Allergy/AdvReac Type Severity Reaction Status Date / Time No Known Drug Allergies Allergy Verified 12/20/20 23:09 - Social History Does the pt smoke?: No Smoking Status: Never smoker Does the pt drink ETOH?: No Does the pt have substance abuse?: Yes - Immunizations Immunizations are current?: Yes - POLST Patient has POLST: No POLST Status: DNR PD ED PE NORMAL - Vitals Vital signs reviewed: Yes - General General: Alert and oriented X 3, Well developed/nourished, Other (seems uncomfortable due to abd pain. ) - Neck Neck: Supple, no meningeal sign, No adenopathy - Cardiac Cardiac: RRR, No murmur - Respiratory Respiratory: Clear bilaterally - Abdomen Abdomen: Soft, Non distended, No organomegaly, Other (tender mid abd just above umbilicaus without masses nor guarding. Bowel sounds hyperactive. ) - Male Male : Deferred - Rectal Rectal: Deferred - Derm Derm: Normal color, Warm and dry, No rash Results - Vitals Vitals: Vital Signs - 24 hr 12/20/20 12/20/20 12/21/20 23:09 23:13 01:13 Temperature 36.6 C 36.6 C Heart Rate 100 100 89 Respiratory 20 20 18 Rate Blood Pressure 150/100 H 150/100 H 140/96 H O2 Saturation 96 96 94 12/21/20 02:58 Temperature 36.6 C Heart Rate 88 Respiratory 16 Rate Blood Pressure 130/90 H O2 Saturation 96 Oxygen O2 Source Room air - Labs Labs: Laboratory Tests 12/20/20 12/20/20 23:23 23:23 WBC 24.4 H RBC 4.93 Hgb 15.3 Hct 46.4 MCV 94.1 H MCH 31.0 MCHC 33.0 RDW 13.8 Plt Count 250 MPV 9.5 Neut # (Auto) Not Reportable Lymph # (Auto) Not Reportable Rush # (Auto) Not Reportable Eos # (Auto) Not Reportable Baso # (Auto) Not Reportable Absolute Nucleated RBC Not Reportable Total Counted 100 Band Neuts % (Manual) 0 Abnorm Lymph % (Manual) 3 Nucleated RBC % Not Reportable Neutrophils # (Manual) 8.1 H Lymphocytes # (Manual) 13.7 H Monocytes # (Manual) 2.0 H Eosinophils # (Manual) 0.5 Basophils # (Manual) 0.2 H Differential Comment MANUAL DIFFERENTIAL WBC Morphology NORMAL APPEARANCE Platelet Estimate NORMAL (130-450,000) Platelet Morphology NORMAL APPEARANCE RBC Morph Micro Appear NORMAL APPEARANCE Sodium 132 L Potassium 3.8 Chloride 101 Carbon Dioxide 22 Anion Gap 9.0 BUN 20 Creatinine 1.4 H Estimated GFR (MDRD) 50 L Glucose 128 H Calcium 8.4 L Total Bilirubin 1.4 H AST 40 ALT 42 Alkaline Phosphatase 72 Total Protein 7.4 Albumin 3.2 Globulin 4.2 Albumin/Globulin Ratio 0.8 L Lipase 82 H - Rads (name of study) abd /pelvic CT Radiology: Prelim report reviewed (possible gallbladder sludge. Normal puentes. No acute process seen. Atelectasis in lower lungs. ), See rad report PD MEDICAL DECISION MAKING - ED course Complexity details: reviewed results, re-evaluated patient (he is feeling better with minimal pain. Most likely intestinal pain and consider constipation subsequent to imodium. Less likely biliary colic given location of tenderness. Recheck abd not tender now. ), considered differential (consider intestinal pain from now constipation. Consider gallbladder, internal hernia, diverticulitis, etc. ), d/w patient Departure - Departure Disposition: 01 Home, Self Care Clinical Impression: Acute upper abdominal pain Condition: Stable Record reviewed to determine appropriate education?: Yes Instructions: ED Abdominal Pain Unkn Cause Follow-Up: Дмитрий Zamorano MD [Primary Care Provider] - Comments: Its unclear the cause of the abdominal pain at this time. Your CT scan did not show any acute obvious cause for your pain. There was a comment about some sludge in the gallbladder but this is a fairly common finding. No signs of inflammation or thickening of the gallbladder wall. Your blood test showed an elevated white count which is also nonspecific. You had a mild elevation of your lipase which is a measure of pancreatic function and inflammation. It was only mildly elevated above normal. You could consider the possibility of some sludge from the gallbladder irritating the bile duct and causing some back pressure to the pancreas. However there was no signs of bile duct blockage at this time. Other possibilities would be some stretching of the intestine related to some mild constipation. As such I would suggest holding your Imodium and perhaps using the Senokot if you have not had a looser stool into tomorrow. Regarding your persistent loose stool, you could see if your primary care would want to do stool cultures for infectious causes and other tests for malabsorption disorders. Follow-up with your primary care in Monday as planned. So current action items are: Hold on your Imodium for now and see if you have more loose stools. Add the Senokot if needed. Stay well-hydrated. Have your lipase rechecked in a couple of days with your primary care appointment to ensure its not trending upward (such as a medication side effect) . Return to the ER if worsened pain again, fever, vomiting, bloody stool or other concerns. Tylenol if needed for mild pains. Discharge Date/Time: 12/21/20 02:58
[2020-12-20 23:32] LABS: BASOPHILS % (AUTO) 0.4 %; EOSINOPHILS % (AUTO) 0.9 %; HCT - HEMATOCRIT 46.4 % (42.0-52.0); HGB - HEMOGLOBIN 15.3 g/dL (14.0-18.0); LYMPHOCYTES % (AUTO) 67.8 %; MEAN CORPUSCULAR VOLUME 94.1 fL (80.0-94.0); MEAN PLATELET VOLUME 9.5 fL (7.4-11.4); MONOCYTES % (AUTO) 5.8 %; NEUTROPHILS % (AUTO) 24.6 %; PLT - PLATELET COUNT 250 10^3/uL (130-450); RED BLOOD COUNT 4.93 10^6/uL (4.70-6.10); RED CELL DISTRIBUTION WIDTH 13.8 % (12.0-15.0); WHITE BLOOD COUNT 24.4 x10^3/uL (4.8-10.8)
[2020-12-20] MEDS ORDERED: MORPHINE 2 MG/ML CARPUJECT IVP STA (23:32)
[2020-12-20] MEDS ORDERED: ONDANSETRON 4 MG/2 ML VIAL IVP STA (23:32)
[2020-12-20] MEDS ORDERED: SODIUM CHLORIDE 0.9% 1,000 ML IV STA (23:32)
[2020-12-20 23:37] LABS: BAND NEUTROPHILS % (MANUAL) 0 %
[2020-12-20 23:44] LABS: ALBUMIN 3.2 g/dL (3.2-5.5); ALBUMIN/GLOBULIN RATIO 0.8 (1.0-2.2); BILIRUBIN,TOTAL 1.4 mg/dL (0.2-1.0); CALCIUM 8.4 mg/dL (8.5-10.3); CREATININE 1.4 mg/dL (0.6-1.2); POTASSIUM 3.8 mmol/L (3.5-5.0); TOTAL PROTEIN 7.4 g/dL (6.7-8.2)
[2020-12-20 23:53] LABS: ABNORMAL LYMPHS % (MANUAL) 3 %; BASOPHILS # (MANUAL) 0.2 10^3/uL (0-0.1); BASOPHILS % (MANUAL) 1 %; EOSINOPHILS # (MANUAL) 0.5 10^3/uL (0-0.7); LYMPHOCYTES # (MANUAL) 13.7 10^3/uL (1.5-3.5); LYMPHOCYTES % (MANUAL) 53 %; NEUTROPHILS # (MANUAL) 8.1 10^3/uL (1.5-6.6)
[2020-12-20 23:54] LABS: DIFFERENTIAL COMMENT MANUAL DIFFERENTIAL; PLATELET ESTIMATE, MANUAL NORMAL (130-450,000) (NORMAL); PLATELET MORPHOLOGY NORMAL APPEARANCE (NORMAL); RBC MORPHOLOGY (MULTIPLE) NORMAL APPEARANCE (NORMAL); WBC MORPHOLOGY (MULTIPLE) NORMAL APPEARANCE (NORMAL)
[2020-12-21] MEDS ORDERED: IOPAMIDOL-300 100 ML VIAL ONE (00:11)
[2020-12-21] MEDS ORDERED: IOPAMIDOL-300 100 ML VIAL IVP ONE (00:51)
--- NOTE | 2020-12-21 01:10 | CT Report ---
PROCEDURE: Abdomen/Pelvis W INDICATIONS: mid to upper abd pain onset this evening CONTRAST: IV CONTRAST: Isovue 300 ml: 100 PO CONTRAST: *NO PO CONTRAST TECHNIQUE: After the administration of intravenous contrast, 5 mm thick sections acquired from the diaphragms to the symphysis. 5 mm thick coronal and sagittal reformats were acquired. For radiation dose reducti on, the following was used: automated exposure control, adjustment of mA and/or kV according to judah ent size. COMPARISON: CT pulmonary angiogram 12/03/2020. FINDINGS: Image quality: Excellent. ABDOMEN: Lung bases: Platelike opacity at the left lung base. Minimal atelectasis at the right lung base. Hear t size is normal. Solid organs: Liver and spleen are normal in size and enhancement. Gallbladder is not distended. Po ssible gallbladder sludge. Biliary system is non dilated. Pancreas enhances normally. No adrenal n odules. Kidneys demonstrate normal size and enhancement, without hydronephrosis. Peritoneum and bowel: Small hiatal hernia. Bowel loops demonstrate normal wall thickness and caliber. Normal appendix. No free fluid or air. Nodes and vessels: No retroperitoneal or mesenteric adenopathy by size criteria. Aorta and inferior vena cava are normal in size. Duplicated IVC. Miscellaneous: No ventral hernias. PELVIS: Genitourinary: Bladder wall thickness is normal. Prostatomegaly. Miscellaneous: No inguinal hernias or adenopathy. Bones: No suspicious bony lesions. No vertebral body compression fractures. IMPRESSION: No acute abnormality identified. No free fluid. Platelike opacity at the left lung base most likely atelectasis. Minimal right lung base atelectasis. No pleural effusion. Reviewed by: Claude Frias MD on 12/21/2020 1:08 AM PDT Approved by: Claude Frias MD on 12/21/2020 1:08 AM PDT Station ID: [id number]
[2020-12-21] MEDS ORDERED: DOCUSATE SODIUM 100 MG CAPSULE PO STA (02:14)
[2020-12-21 03:00] VITALS: BP 130/90
== END 2020-12-21 02:58 | disposition home or self-care (01) ==
LOC: ED 23:03
DX: R10.12 Left upper quadrant pain (principal); I10 Essential (primary) hypertension
CPT/HCPCS: 36415; 74177; 80053; 83690; 85025; 93005; 96374; 96375; 99284; A9270; Q9967

== ENCOUNTER 2020-12-22 15:57 | Outpatient (CLI) | payer MEDICARE, OTHER ==
[2020-12-22 20:29] LABS: ALBUMIN 3.1 g/dL (3.2-5.5); ALBUMIN/GLOBULIN RATIO 0.8 (1.0-2.2); BILIRUBIN,DIRECT 0.1 mg/dL (0.1-0.5); BILIRUBIN,INDIRECT 1.1 mg/dL; BILIRUBIN,TOTAL 1.2 mg/dL (0.2-1.0); CALCIUM 8.5 mg/dL (8.5-10.3); CREATININE 1.5 mg/dL (0.6-1.2); POTASSIUM 4.3 mmol/L (3.5-5.0); TOTAL PROTEIN 7.1 g/dL (6.7-8.2)
== END 2020-12-22 15:58 | disposition home or self-care (01) ==
LOC: LAB.S 15:57
PROVIDERS: ATTEND Nurse Practitioner Family
DX: R74.8 Abnormal levels of other serum enzymes (principal); E87.1 Hypo-osmolality and hyponatremia; R17 Unspecified jaundice
CPT/HCPCS: 36415; 80053; 82150; 82247; 82248; 83690

== ENCOUNTER 2021-09-26 08:00 | Outpatient (CLI) | payer MEDICARE, OTHER | END 2021-09-26 08:01 | disposition home or self-care (01) | LOC: LAB.N 08:00 | PROVIDERS: ATTEND Physician Assistant | DX: R05.3 Chronic cough (principal); Z20.822 Contact with and (suspected) exposure to COVID-19 ==